=== PATIENT | female | born 1940 | race African-American/Black ===

== ENCOUNTER 2018-12-13 07:24 | Day surgery (SDC) | payer MEDICARE ==
--- NOTE | 2018-12-13 10:28 | RAD ---
XR Chest 1 View HISTORY: Post thoracenteses COMPARISON: None FINDINGS: A small right pleural effusion is present. There is a small right apical pneumothorax. There are changes of median sternotomy and previous valvular surgery. A left-sided pacemaker device i s present. The heart is enlarged. The left lung is clear. IMPRESSION: Small right pneumothorax and small residual right pleural effusion
[2018-12-13 11:16] LABS: Fluid, pH - Pleural Fld Greater than 7.50 (7.60 - 7.66)
[2018-12-13 11:28] LABS: Pleural Fluid, Protein 2.8 g/dL
[2018-12-13 11:39] LABS: BF Color Yellow; Body Fluid Source Pleural Fluid; Clarity Hazy (Clear)
[2018-12-13 11:40] LABS: BF RBC Count - Manual 48 /cumm; BF WBC/Nonhematics Ct. - Manua 76 /cumm; Tube # 3
[2018-12-13 12:03] LABS: BF Segmented Neutrophils 4 %; Cell Count Non Hematic 33 %; Lymphocytes 63 %
--- NOTE | 2018-12-13 15:59 | OP ---
DATE OF PROCEDURE: 12/13/2018 SERVICE: Pulmonary Medicine. PROCEDURE PERFORMED: Right-sided pleural drainage with catheter insertion under ultrasound guidance. CONSENT: Risks and benefits of the procedure were discussed with the patient and her at bedside. All questions were answered and alternative options explained. STAFF PHYSICIAN: Tahir Borjas MD MEDICATIONS USED: Lidocaine 1% without epinephrine, 10 mL. PREOPERATIVE DIAGNOSIS: Pleural effusion, not otherwise specified. POSTPROCEDURE DIAGNOSIS: Pleural effusion, not otherwise specified. DESCRIPTION OF PROCEDURE: Time-out was performed by the procedure team and patient. The patient was positively identified using name and date of . The procedure site was marked. Vital sign monitoring was accomplished by noninvasive hemodynamic monitoring, pulse oximetry, and telemetry. In the seated position, the right posterior hemothorax was examined using an ultrasound probe. The pleural fluid, diaphragm, and atelectatic lung were easily identified. The patient was prepped and draped in sterile fashion and anesthetized with 1% lidocaine without epinephrine. A finder needle was inserted in the pleural space with return of crystal clear, yellow pleural fluid. A drainage catheter was inserted in the same location and a total quantity of 1.1 L of the same crystal clear yellow fluid were withdrawn by syringe pump technique. A sample was collected for analysis. Evacuation of the fluid was terminated because we arrived at -20 cm of water pressure. Afterwards, I suspect there was as much 500 mL of fluid left in the pleural space based on bedside ultrasound. A sterile dressing was applied and the procedure was subsequently terminated. ESTIMATED BLOOD LOSS: Negligible. COMPLICATIONS: None. Job ID: [id number] MTDD
[2018-12-17 09:11] LABS: Fungus Stain Final report (.)
== END 2018-12-13 11:00 | disposition home or self-care (01) ==
LOC: SDC 07:24
PROVIDERS: ATTEND Internal Medicine
PROC: 0B9N30Z Drainage of Right Pleura with Drainage Device, Percutaneous Approach (ICD-10-PCS; principal; 2018-12-13)
DX: J90 Pleural effusion, not elsewhere classified (principal)
CPT/HCPCS: 32555; 71045; 82150; 82945; 83615; 84157; 85060; 87070; 87102; 87116; 87205; 87206; 88112; 88305; 89051

== ENCOUNTER 2019-01-02 11:45 | Outpatient (CLI) | payer MEDICARE ==
--- NOTE | 2019-01-02 13:19 | RAD ---
RADIOGRAPH CHEST 2 VIEWS: Date: 01-02-19 Time: 11:59 a.m. HISTORY: 78-year-old female with dyspnea. COMPARISON: 12-13-18 FINDINGS: The right pleural effusion has now become large, opacifying the lower half of the right hemithoracic cavity. The previously demonstrated small right apical pneumothorax is no longer visualized. Again no jovany are the sternotomy wires, TAVR stent, and left subclavian AICD. No pleural effusion on the left s soraya. Right upper lobe and the entire left lung are clear. No pulmonary edema. IMPRESSION: 1. Reaccumulation of now large right pleural effusion. 2. Status post transcatheter aortic valve replacement. 3. Status post open heart surgery. 4. Automatic implantable cardioverter/defibrillator. JN POS: CET
== END 2019-01-02 11:46 | disposition home or self-care (01) ==
LOC: RAD 11:45
PROVIDERS: ATTEND Internal Medicine
DX: R06.00 Dyspnea, unspecified (principal); Z95.2 Presence of prosthetic heart valve; Z95.818 Presence of other cardiac implants and grafts
CPT/HCPCS: 71046

== ENCOUNTER 2019-04-04 08:57 | Outpatient (CLI) | payer MEDICARE ==
--- NOTE | 2019-04-04 11:03 | RAD ---
TWO VIEWS CHEST: DATE: 04/04/2019. PROVIDED CLINICAL HISTORY: Dyspnea. FINDINGS: Comparison 01/02/2019. Visualized cardiac and mediastinal silhouette is unchanged in appearance. Medi an sternotomy changes, left subclavian cardiac pacing device, and prosthetic aortic valve are redemon strated. Interval increase in right pleural effusion with adjacent atelectasis. Left lung appears f ree of significant opacity. No evidence for pneumothorax. IMPRESSION: Large right pleural effusion, increased with respect to prior. POS: TPC
== END 2019-04-04 08:58 | disposition home or self-care (01) ==
LOC: RAD 08:57
PROVIDERS: ATTEND Internal Medicine
DX: R06.00 Dyspnea, unspecified (principal); J90 Pleural effusion, not elsewhere classified
CPT/HCPCS: 71046

== ENCOUNTER 2019-08-08 09:21 | Outpatient (CLI) | payer MEDICARE ==
--- NOTE | 2019-08-08 09:50 | RAD ---
PA AND LATERAL VIEWS CHEST: Date: 08/08/2019 HISTORY: Dyspnea. COMPARISON: 04/04/2019. FINDINGS: Large right pleural effusion is unchanged. Changes of median sternotomy are again seen. Left-sided pa cemaker device and prosthetic aortic valve are redemonstrated. Left side is stable. Left lung is well aerated with mild atelectatic change in the left lung base. No pneumothoraces are seen. IMPRESSION: Stable large right pleural effusion. POS: BIRD
== END 2019-08-08 09:22 | disposition home or self-care (01) ==
LOC: RAD 09:21
PROVIDERS: ATTEND Internal Medicine
DX: R06.00 Dyspnea, unspecified (principal); J90 Pleural effusion, not elsewhere classified
CPT/HCPCS: 71046

== ENCOUNTER 2019-08-08 10:26 | Inpatient (IN) | payer MEDICARE ==
[2019-08-08] MEDS ORDERED: Furosemide 40 MG/4 ML VIAL ONE (11:09)
[2019-08-08 11:19] LABS: Hemoglobin 9.6 g/dL (12.0-16.0); Red Blood Cell (RBC) Count 2.94 mill/uL (4.20-5.40); White Blood Cell (WBC) Count 4.4 thou/uL (4.8-10.8)
[2019-08-08 11:37] LABS: #Lymphocytes 0.7 thou/uL (1.20-3.40); #Monocytes 0.5 thou/uL (0.11-0.59); #Neutrophils 3.1 thou/uL (1.40-6.50); %Basophils 0.1 % (0.0-1.0); %Eosinophils 0.4 % (0.0-10.0); %Lymphocytes 16.8 % (21.0-51.0); %Monocytes 11.4 % (0.0-10.0); %Neutrophils 71.3 % (42.0-75.0); Anisocytosis SLIGHT = 6-15 cells (100X) (0-5/hpf); MDiff Complete? YES; Macrocytosis SLIGHT = 6-15 cells (100X) (0-5/hpf); Mean Corpuscular HGB CONC 30.5 g/dL (32.0-36.0); Mean Corpuscular Hemoglobin 32.6 pg (27.0-31.0); Mean Platelet Volume 9.2 fL (7.4-10.4); Platelet Count 96 thou/uL (130-400); Platelet Morphology Comment Appears Adequate; RBC Distribution Width 15.3 % (11.5-14.5)
[2019-08-08] MEDS ORDERED: Aspirin Chewable 81 MG TAB ONE (11:58)
[2019-08-08 12:02] LABS: CKMB 8.3 ng/mL (0-6.6)
[2019-08-08 12:10] LABS: ALT (SGPT) 10 U/L (8-55); AST (SGOT) 22 U/L (5-34); Alkaline Phosphatase 115 U/L (40-110); Anion Gap 11 mmol/L (10-20); BUN (Urea Nitrogen) 38 mg/dL (9.8-20.1); Bilirubin, Total 0.6 mg/dL (0.2-1.2); CK (CPK) 121 U/L (29-168); Calc. Creatinine Clearance 0 mL/min (70-130); Calcium 8.4 mg/dL (7.8-10.44); Carbon Dioxide 31 mmol/L (23-31); Chloride 105 mmol/L (98-107); Estimated GFR-MDRD 32; Globulin 3.5 g/dL (2.4-3.5); Glucose 107 mg/dL (83-110); Potassium 4.5 mmol/L (3.5-5.1); Protein, Total 6.5 g/dL (6.0-8.3); Sodium 142 mmol/L (136-145)
[2019-08-08] MEDS ORDERED: Sodium Chloride 0.9% 0 ML ONE (13:21)
[2019-08-08] MEDS ORDERED: Cefepime 2 GM VIAL ONE (13:21)
[2019-08-08] MEDS ORDERED: DOBUTamine 500 mg/250 ml 250 ML ONE (15:14)
[2019-08-08 15:16] LABS: Bacteria/HPF None Seen HPF (None Seen); Bilirubin Negative (Negative); Blood, Urine Negative (Negative); Clarity Turbid (Clear); Glucose, Urine (Dipstick) Normal (Negative); Leukocyte Negative Leu/uL (Negative); Nitrite Negative (Negative); Protein, Urine (Dipstick) 30 mg/dL (Neg-Trace); RBC/HPF None Seen HPF (0-3); Squamous Epithelial 0-3 HPF (0-3); WBC/HPF 0-3 HPF (0-3)
[2019-08-08] MEDS ORDERED: Bisacodyl 10 MG SUPP PR PRN (15:19)
[2019-08-08] MEDS ORDERED: DOBUTamine 500 mg/250 ml 250 ML IVPB SCH (15:19)
[2019-08-08] MEDS ORDERED: Ondansetron PF 4 MG/2 ML Vial IVP PRN (15:19)
[2019-08-08] MEDS ORDERED: Guaifenesin DM 100-10/5 ML UDCUP PO PRN (15:19)
[2019-08-08 15:22] LABS: INR-International Normal Ratio 2.3; Prothrombin Time 25.5 SEC (12.0-14.7)
--- NOTE | 2019-08-08 16:20 | HP ---
REASON FOR ADMISSION: CHF exacerbation with cardiogenic shock, acute kidney injury, acute respiratory failure with hypoxia, massive right pleural effusion. HISTORY OF PRESENTING ILLNESS: The patient gives history of having progressive swelling in both lower extremities and worsening shortness of breath. She normally ambulates with a cane inside the house. The patient is hard of hearing and not fully oriented at present. Her is at bedside and is filling in for her. They apparently called Dr. Carver, internet sales associate on Sunday as she was having trouble with the above. He asked them to call Dr. Borjas's office and the patient had come to see Dr. Borjas this morning. Her systolic blood pressures were in the 70s with elevated JVD and the patient was asked to go to the ER. On arrival here, the patient had a MAP of 50 and had a femoral line placed. She is currently not complaining of any chest pain or palpitation. No complaints of cough or expectoration or hemoptysis. No fever. The patient has had left lower extremity edema more than right because of vein harvesting in the past for CABG, but currently has severe edema. PAST MEDICAL AND SURGICAL HISTORY: History of CABG in 2001, prior history of stent, CHF with ejection fraction of around 30%, prior thoracentesis done in December 2018 on the right side by Dr. Borjas, hypertension, history of TAVR, moderate mitral regurgitation, dyslipidemia, biventricular pacemaker placed in 2016, hysterectomy, AV node ablation done in 2015, last stent was placed in 2000. CURRENT MEDICATIONS: The patient is on: 1. Eliquis 5 mg twice daily. 2. Lisinopril 10 mg daily. 3. Plavix 75 mg daily. 4. Lasix 20 mg daily. 5. Atorvastatin 20 mg daily. 6. Aspirin 81 mg daily. 7. Coreg 3.125 mg twice daily. 8. Potassium chloride 10 mEq p.o. daily. 9. Vitamin D one tablet daily. 10. Fish oil 1000 mg twice daily. 11. Lantus subcu daily. ALLERGIES: PRADAXA, SIMVASTATIN, AND DIAZEPAM. PERSONAL HISTORY: Does not abuse alcohol or drugs. No history of smoking. FAMILY HISTORY: Mother at the age of 65 from massive OR. Father in his 80s from natural causes. The patient is to her from last 57 years or so now. REVIEW OF SYSTEMS: CONSTITUTIONAL: Negative for weight loss or gain, ability to conduct usual activities. SKIN: Negative for rash, itching. EYES: Negative for double vision, pain. ENT/MOUTH: Negative for nose bleeding, neck stiffness, pain, tenderness. CARDIOVASCULAR: Negative for palpitations, dyspnea on exertion, orthopnea. RESPIRATORY: Negative for shortness of breath, wheezing, cough, hemoptysis, fever or night sweats. GASTROINTESTINAL: Negative for poor appetite, abdominal pain, heartburn, nausea, vomiting, constipation, or diarrhea. GENITOURINARY: Negative for urgency, frequency, dysuria, nocturia. MUSCULOSKELETAL: Negative for pain, swelling. NEUROLOGIC/PSYCHIATRIC: Negative for anxiety, depression. ALLERGY/IMMUNOLOGIC: Negative for skin rash, bleeding tendency. CODE STATUS: Full. Power of attorney law clerk is her . PHYSICAL EXAMINATION: GENERAL: The patient is a 79-year-old female, who is currently not in any acute distress. VITAL SIGNS: Blood pressure currently is 90/40, pulse 80 per minute, respiratory rate 20 per minute, saturating 97% on 2 L nasal cannula, and temperature 98.3 degrees Fahrenheit. NECK: Supple. There is elevated JVD. HEENT: Eyes; extraocular muscles intact. Pupils reacting to light. Oral cavity, mucous membranes are dry. No exudates or congestion. CARDIOVASCULAR SYSTEM: S1 and S2 heard. Regular rhythm. RESPIRATORY SYSTEM: Air entry is decreased on the right side and left infrascapular area as well. There are rales plus bilateral. ABDOMEN: Soft. Bowel sounds heard. No tenderness, rigidity, or guarding. EXTREMITIES: There is massive edema in both lower extremities, left more than right. No calf tenderness. VASCULAR SYSTEM: Peripheral pulses 1+ bilateral. No ischemic ulcerations or gangrene. CENTRAL NERVOUS SYSTEM: No gross focal deficits noted. The patient is alert, awake, and responds well to verbal questions. PSYCHIATRIC SYSTEM: No obvious hallucinations or delusions. LABORATORY DATA: Chest x-ray done shows massive right-sided pleural effusion. There is left pleural effusion as well. White count of 4.4, hemoglobin and hematocrit of 9 and 31, platelet count is 96, MCV is 107 with 71% neutrophils. PT/INR 25 and 2.3, PTT 41. Serum bicarb is 31, BUN 38, creatinine 1.8. Liver enzymes within normal limits. CK-MB 8.3, troponin I 0.16. BNP is 1471. Albumin is 3.0. EKG done shows paced rhythm at 70 beats per minute. CLINICAL IMPRESSION AND PLAN: The patient will be admitted to ICU for congestive heart failure exacerbation with systolic dysfunction and cardiogenic shock with acute respiratory failure with hypoxia. The patient also has acute kidney injury on top of likely chronic kidney disease. She normally follows up with Dr. Carver. She has had prior thoracentesis done last year and her cytology was negative for malignancy. She has known history of CHF with ejection fraction of around 30% and has had prior TAVR done in summer of 2018 in [place]. She will be on dobutamine 2.5 mcg/kg per minute, if needed we will increase it to 5. Small dose of aspirin and if her blood pressure permits, the patient will be on Lasix 40 mg at 6 a.m. and 2 p.m. I have consulted Dr. Villarreal for Pulmonology and likely the patient will need thoracentesis done to help with cardiac output. The patient also has massive edema in both lower extremities and will try to wear the JANET hose. I have requested Cardiology consultation with Dr. Leger. We will obtain a current ejection fraction with echo with 2D Doppler. The patient will be on clear liquid diet. I have spoken Dr. Mcneill for possible worsening of acute kidney injury with diuresis and current cardiogenic shock. Her overall prognosis is guarded. I have discussed her findings with the patient and her at bedside. They want to be full code for now. Job ID: [id number]
--- NOTE | 2019-08-08 16:53 | CON ---
DATE OF CONSULTATION: HISTORY OF PRESENT ILLNESS: Elizabeth Del Castillo is a 79-year-old female, who was sent to the ER by Dr. Borjas with symptoms of shortness of breath and pleural effusion. She has been getting more short of breath now for a period of time. No chest pain. No chills or sweats. PAST MEDICAL HISTORY: Pertinent for large pleural effusion, cardiomyopathy, and renal failure. PAST SURGICAL HISTORY: Otherwise included AICD. Hysterectomy, ablation, and angioplasty. HOME MEDICATIONS: Unknown at this time. to bring medication. PHYSICAL EXAMINATION: GENERAL: The patient is deaf, refuses to answer any questions. VITAL SIGNS: Blood pressure is 80/60, pulse 80, respirations 20, and saturations 98%. CHEST: Decreased breath sounds in entire right lung. Left lung unremarkable. CARDIAC: Normal S1 and S2. No gallops. ABDOMEN: No masses. LABORATORY DATA: INR is 2.3. White count 4000, hemoglobin and hematocrit of 9 and 31, platelet count 96 low. Lytes are normal. Creatinine 1.8. BNP is 1471. CK is 18.3. UA is negative. X-ray shows a large right pleural effusion. 1. Congestive heart failure. 2. Aortic stenosis. 3. Cardiomyopathy. 4. AICD. 5. disease. 6. Renal failure. 7. Anemia. 8. Large hemorrhoids. PLAN: Therapeutic thoracentesis will be performed further direction thereafter. Continue cardiac care as per Cardiology. Supportive care. Prognosis remains guarded. Consult Palliative Care for ongoing issues. This is a consultation note, 70 minutes, 50% direct patient care. Job ID: [id number]
--- NOTE | 2019-08-08 17:25 | RAD ---
EXAM: CHEST ONE VIEW: 08/08/19 HISTORY: Follow-up thoracentesis. FINDINGS: There is evidence for a small to moderate right sided pneumothorax, largest in the lateral aspect of the right lower chest with a small amount of air extending up into the apex. No evidence for tension. Cardiomegaly. Postop midline sternotomy and left ICD and TAVR changes. Small amount of subcutaneous emphysema. IMPRESSION: Small to moderate right sided pneumothorax following thoracentesis. Findings were discussed with Dr. Villarreal by phone at 4:20 p.m. Jeanna REYNAGA
--- NOTE | 2019-08-08 17:30 | RAD ---
EXAM: CHEST ONE VIEW: 08/08/19 HISTORY: Follow-up pneumothorax. COMPARISON: 3:46 p.m., 08/08/19. FINDINGS: A small caliber Heimlich valve catheter has been placed. Persistent small to moderate right sided pne umothorax with some subcutaneous emphysema which appears slightly more prominent. Stable cardiomegaly in left chest. IMPRESSION: Little change in the right sided pneumothorax following placement of a small caliber chest tube. POS: [facility]
[2019-08-08 17:33] LABS: Fluid, pH - Pleural Fld 7.44 (7.60 - 7.66)
[2019-08-08 17:45] LABS: Fluid, Triglycerides Less than 11 mg/dL (Not Available); Pleural Fluid, Amylase 42 U/L (Not Available); Pleural Fluid, Glucose 131 mg/dL; Pleural Fluid, LDH 80 U/L (Not Available); Pleural Fluid, Protein 2.2 g/dL
[2019-08-08 18:07] LABS: RBC Count-Automated (BF) 733 /cumm; WBC/Nucleated-Auto (BF) 584 uL
[2019-08-08 18:10] LABS: BF Color Yellow; Body Fluid Source Pleural Fluid; Clarity Hazy (Clear); Tube # EDTA
[2019-08-08 18:12] LABS: BF Segmented Neutrophils 5 %; Cell Count Non Hematic 74 %; Lymphocytes 21 %
--- NOTE | 2019-08-08 19:24 | CON ---
DATE OF CONSULTATION: 08/08/2019 REASON FOR CONSULTATION: Heart failure. PRIMARY NURSES EDUCATOR: Randall Carver MD HISTORY OF PRESENT ILLNESS: Ms. Daniels is a very pleasant 79-year-old -Spanish female, who comes to the hospital for worsening shortness of breath. She has noticed progressive worsening of lower extremity edema and shortness of breath. She was seen in the ER. She was borderline hypotensive, started on dobutamine drip. Chest x-ray showed a massive right-sided pleural effusion. Cardiac is being consulted for further evaluation of her heart failure. She has known cardiomyopathy with an EF around 30%. PAST MEDICAL HISTORY: 1. History of coronary artery disease, status post CABG in 2001. 2. History of stenting in the more recent past. 3. Ischemic cardiomyopathy with EF around 30%. 4. History of massive right-sided pleural effusion, status post thoracentesis in December of [address] Borjas. 5. History of aortic stenosis, status post TAVR. 6. Hypertension. 7. Hyperlipidemia. 8. Biventricular pacemaker insertion in 2016. 9. Hysterectomy. 10. AVJ node ablation in 2015. OUTPATIENT MEDICATIONS: 1. Eliquis 5 mg b.i.d. 2. Lisinopril 10 mg a day. 3. Plavix 75 mg a day. 4. Lasix 10 mg a day. 5. Atorvastatin 10 mg a day. 6. Aspirin 81 a day. 7. Coreg 3.125 b.i.d. 8. Potassium chloride 10 mEq a day. 9. Vitamin D. 10. Fish oil. 11. Lantus. ALLERGIES: PRADAXA, SIMVASTATIN, AND DIAZEPAM. SOCIAL HISTORY: No alcohol, tobacco, or drugs. FAMILY HISTORY: Mother of [place] at 65. Father at 80s of natural causes. REVIEW OF SYSTEMS: A 12-point review of systems was done and was all negative unless stated in the history of present illness. PHYSICAL EXAMINATION: VITAL SIGNS: Temperature 97.7, heart rate 70, respiratory rate 21, sat 99% on 2 L nasal cannula, and blood pressure 103/57. GENERAL: Awake, alert, and oriented x3, in no acute distress. HEENT: Normocephalic and atraumatic. Extreme hypoacusia, she really cannot hear much. NECK: Supple with JVD up to about 14 cm of water. LUNGS: No breath sounds to the right lung. Mild crackles in the left base. CARDIOVASCULAR: Grade 3/6 systolic murmur at the right upper sternal border. S1 and S2. ABDOMEN: Soft. Positive bowel sounds. EXTREMITIES: 2+ edema. SKIN: Warm and dry. LABORATORY DATA: Laboratory work was reviewed. White count of 4, hemoglobin 9.6, hematocrit of 31, and platelet count of 96. Coags, INR was 2.3. Chemistry with troponin in the indeterminate range. CK-MB of 8.3. BNP is 1471. BUN 38, creatinine 1.84, albumin of 3.0. UA was turbid with 30 protein, 2.0 urobilinogen, 1+ crystals and hyaline casts. Chest x-ray initially showed a large massive right-sided pleural effusion after 2 L were taken out. Repeat x-ray showed a large pneumothorax, basically the lung not expanding. ASSESSMENT AND PLAN: 1. Acute on chronic systolic heart failure. 2. Massive right-sided pleural effusion. 3. Status post thoracentesis and a large pneumothorax secondary to the lung reexpanding. 4. Acute hypoxic respiratory insufficiency. 5. Cardiogenic shock, blood pressure improved on low-dose dobutamine. PLAN: 1. Continue supportive care with low-dose dobutamine. 2. Blood pressure is a lot better. 3. Already has a chest tube in place, but she will probably need a bigger chest tube. Management of this pneumothorax per Pulmonary Critical Care. 4. Difficult to do any Lasix at this time with borderline low blood pressure. She already had 2 L out just from this pleural effusion, so this hopefully is going to make her feel a lot better. Her blood pressure is already a lot better as well. Thank you for letting us to participate in the care of your patient. We will follow. Job ID: [id number]
[2019-08-08] MEDS ORDERED: Heparin 5,000 UNITS/ML VIAL SC SCH (21:00)
[2019-08-08] MEDS: Preparation H Ointment 57 gram tube TOP PRN (21:56)
[2019-08-08] MEDS: Acetaminophen 325 MG TAB PO PRN (23:40)
--- NOTE | 2019-08-09 01:31 | CON ---
DATE OF CONSULTATION: 08/08/2019 CONSULTING PHYSICIAN: Dr. Hollingsworth. REASON FOR CONSULTATION: Acute kidney injury. REASON FOR ADMISSION: Shortness of breath. HISTORY OF PRESENT ILLNESS: This 79-year-old female with history of CHF, CAD, hyperlipidemia, mitral regurgitation, came to the hospital with shortness of breath. She has been evaluated. She was hypotensive and fluid overloaded and she is currently on dobutamine. Nephrology consult for acute kidney injury. Her creatinine was found to be 1.8. The patient is feeling slightly better. She was seen in ICU. Her is at the bedside. No fever or chills. No nausea or vomiting. PAST MEDICAL HISTORY: Positive for coronary artery disease, CHF, hypertension, mitral regurgitation, and dyslipidemia. PAST SURGICAL HISTORY: CABG, cardiac stents, thoracentesis, TAVR, biventricular pacemaker, hysterectomy, and AV tomer ablation. HOME MEDICATIONS: 1. Eliquis. 2. Lisinopril. 3. Plavix. 4. Lasix. 5. Atorvastatin. 6. Aspirin. 7. Coreg. 8. Potassium. 9. Vitamin D. 10. Fish oil. 11. Lantus. ALLERGIES: PRADAXA, SIMVASTATIN, AND DIAZEPAM. SOCIAL HISTORY: No smoking, alcohol or drugs. FAMILY HISTORY: Positive for coronary artery disease. REVIEW OF SYSTEMS: CONSTITUTIONAL: Negative for weight loss or gain, ability to conduct usual activities. SKIN: Negative for rash, itching. EYES: Negative for double vision, pain. ENT/MOUTH: Negative for nose bleeding, neck stiffness, pain, tenderness. CARDIOVASCULAR: Negative for palpitations, dyspnea on exertion, orthopnea. RESPIRATORY: Negative for shortness of breath, wheezing, cough, hemoptysis, fever or night sweats. GASTROINTESTINAL: Negative for poor appetite, abdominal pain, heartburn, nausea , vomiting, constipation, or diarrhea. GENITOURINARY: Negative for urgency, frequency, dysuria, nocturia. MUSCULOSKELETAL: Negative for pain, swelling. NEUROLOGIC/PSYCHIATRIC: Negative for anxiety, depression. ALLERGY/IMMUNOLOGIC: Negative for skin rash, bleeding tendency. PHYSICAL EXAMINATION: GENERAL: This is a well-built female, in no apparent distress. VITAL SIGNS: Temperature 97.7, pulse 70, respiratory rate 18 blood pressure 108/50. HEENT: Atraumatic, normocephalic. Oral mucosa is moist. NECK: Supple. CV: S1 and S2 heard. Regular rate and rhythm. RESPIRATORY: Clear. GASTROINTESTINAL: Abdomen is soft. MUSCULOSKELETAL: 1+ edema. DERMATOLOGIC: No skin rash. NEUROLOGIC: Alert and awake. PSYCHIATRIC: Mood and affect normal. LABORATORY DATA: Potassium 4.5, BUN is 38, and creatinine is 1.8, and hemoglobin is 9.0. ASSESSMENT AND PLAN: 1. Acute kidney injury on chronic kidney stage 3, most likely cardiorenal syndrome. Agree with current management including inotropes and we will monitor renal function. Continue on diuretics. 2. Hypotension. 3. Cardiorenal syndrome, cardiogenic shock. 4. Anemia. 5. Edema with fluid overload. 6. We will have close monitor renal function and electrolytes monitor closely. Avoid nephrotoxins. Avoid ALFREDO inhibitors or contrast at this point if able to. We will follow. Job ID: [id number] MTDD
[2019-08-09] MEDS ORDERED: Norepinephrine 8 MG/0.9% NS 250 ML ONE (04:11)
[2019-08-09] MEDS: Norepinephrine 8 MG/0.9% NS 250 ML IVPB PRN ×2 (04:15→19:08)
[2019-08-09 04:19] LABS: #Lymphocytes 0.7 thou/uL (1.20-3.40); #Monocytes 0.5 thou/uL (0.11-0.59); %Eosinophils 0.3 % (0.0-10.0); %Lymphocytes 13.2 % (21.0-51.0); %Monocytes 9.7 % (0.0-10.0); %Neutrophils 76.8 % (42.0-75.0); Hemoglobin 8.2 g/dL (12.0-16.0); Mean Corpuscular HGB CONC 31.2 g/dL (32.0-36.0); Mean Corpuscular Hemoglobin 32.9 pg (27.0-31.0); Mean Platelet Volume 9.9 fL (7.4-10.4); Platelet Count 72 thou/uL (130-400); Red Blood Cell (RBC) Count 2.49 mill/uL (4.20-5.40); White Blood Cell (WBC) Count 5.2 thou/uL (4.8-10.8)
[2019-08-09 05:02] LABS: ALT (SGPT) Less than 7 U/L (8-55); AST (SGOT) 16 U/L (5-34); Albumin 2.3 g/dL (3.4-4.8); Alkaline Phosphatase 76 U/L (40-110); Anion Gap 8 mmol/L (10-20); BUN (Urea Nitrogen) 38 mg/dL (9.8-20.1); Bilirubin, Total 0.7 mg/dL (0.2-1.2); Calc. Creatinine Clearance 26 mL/min (70-130); Calcium 7.7 mg/dL (7.8-10.44); Carbon Dioxide 31 mmol/L (23-31); Chloride 107 mmol/L (98-107); Estimated GFR-MDRD 36; Globulin 2.9 g/dL (2.4-3.5); Glucose 128 mg/dL (83-110); Potassium 4.4 mmol/L (3.5-5.1); Protein, Total 5.2 g/dL (6.0-8.3); Sodium 142 mmol/L (136-145)
[2019-08-09] MEDS: Furosemide 40 MG/4 ML VIAL SLOW IVP SCH ×2 (06:17→14:01)
[2019-08-09] MEDS: DOBUTamine 500 mg/250 ml 250 ML IVPB SCH ×2 (06:17→15:08)
--- NOTE | 2019-08-09 07:49 | RAD ---
EXAM: XR Chest 1 View Portable PROVIDED CLINICAL HISTORY: Pneumothorax COMPARISON: 08/08/2019 FINDINGS: Interval decrease but persistently at least moderate right pneumothorax. Development of right pleural fluid. Cardiac silhouette remains enlarged. Median sternotomy changes, left subclavian cardiac pacing device and prosthetic cardiac valve are redemonstrated. Small caliber right-sided chest tube i s again seen in similar position. IMPRESSION: Right hydropneumothorax with probably diminished but persistently at least moderate pleural gas.
[2019-08-09] MEDS: Aspirin Chewable 81 MG TAB PO SCH (09:08)
--- NOTE | 2019-08-09 09:21 | PRG ---
DATE OF SERVICE: 08/09/2019 SUBJECTIVE: This morning, the patient is on Dobutrex and Levophed. OBJECTIVE: VITAL SIGNS: Blood pressure systolic 100/70, pulse rate is 18, saturations 100% on 2 L. GENERAL: Awake, alert, and responsive. Denies any difficulty breathing. CHEST: Decreased breath sounds. No wheezing. CARDIAC: Normal S1 and S2. No gallops. ABDOMEN: No masses. LABORATORY DATA: INR is 2.3. White count 5000, hemoglobin and hematocrit of 8 and 26, platelet count is 72,000. Creatinine is 1.65. Pleural effusion was transudate. IMPRESSION: Cardiomyopathy, chronic right pleural effusion, renal failure. PLAN: Continue supportive care, empiric antibiotics, neb treatment. We will follow. We will consider putting a large chest tube on the right side to inflate the lung. Job ID: [id number]
[2019-08-09] MEDS: Hydrocortisone Sod Succ/PF 100 mg/2 ml Vial IVP SCH ×3 (12:02→23:56)
[2019-08-09] MEDS: cefTRIAXone\\ROCEPHIN 1 GM in Sodium Chloride 0.9% 100 ML IVPB SCH (12:02)
--- NOTE | 2019-08-09 12:02 | PRG ---
DATE OF SERVICE: 08/09/2019 Area of the small-bore chest tube, Joshua trial was reviewed. Unfortunately, there was seen multiple kinks in the small-bore chest tube and the entire small-bore chest tube was clotted with blood. Attempt to flush with normal saline was unsuccessful. It was felt at that time it is best to remove the tube. It is not serving any purpose. The suture was removed. The chest tube was removed. Bandage was placed. She remains having 100% saturation. It is my plan that in the morning depending upon the x-ray, we may consider inserting a large or small bore chest tube with the help of CV Surgery. Overall prognosis remains guarded. She got severe cardiomyopathy. I am going to start empiric steroids and antibiotics. Job ID: [id number]
--- NOTE | 2019-08-09 12:23 | PRG ---
DATE OF SERVICE: 08/09/2019 SUBJECTIVE: Patient was seen and examined at bedside and overnight events noted. Patient denies any shortness of breath or chest pain or palpitation. No history of nausea or vomiting or diarrhea or fever or chills or cramps. OBJECTIVE: GENERAL: This is a well-built female, in no apparent distress. VITAL SIGNS: Temperature 97.8. Heart rate 70. Respiratory rate 16. Blood pressure 93/43. HEENT: Atraumatic, normocephalic. Oral mucosa is moist NECK: Supple. CARDIOVASCULAR: S1, S2 heard. Rate and rhythm regular. RESPIRATORY: Clear to auscultation. GASTROINTESTINAL: Abdomen is soft. MUSCULOSKELETAL: No tenderness. No edema. DERMATOLOGIC: No skin rash. NEUROLOGIC: Alert and awake and oriented X3. No focal neurologic deficits. Moving all the extremities. PSYCHIATRIC: Mood and affect normal. LABORATORY DATA: Potassium 4.4, BUN is 38, creatinine is 1.65. Platelet is 72. ASSESSMENT AND PLAN: 1. Acute kidney injury on chronic kidney disease stage 3, getting better. 2. Hypertension. 3. Cardiorenal syndrome. 4. Anemia. 5. Edema with fluid overload. 6. Altered mentation, better. Renal function continues to get better. Continue current management. We will follow. Job ID: [id number]
--- NOTE | 2019-08-09 13:56 | PDOC.HOSPP ---
- Subjective Encounter Date: 08/09/19 Encounter Time: 12:00 Subjective: is on both dobutamine and levophed with sbp around 80-90's awakens to touch, not in distress very hard of hearing, she had hearing aid yesterday in ER but she is not wearing one now. - Objective Vital Signs & Weight: Vital Signs (12 hours) Temp Pulse Ox 08/09/19 13:00 98.2 F 08/09/19 12:00 100 08/09/19 08:00 97.8 F 08/09/19 07:31 100 08/09/19 04:00 98.0 F Weight Admit Weight 133 lb 2.56 oz Weight 140 lb 14 oz Most Recent Monitor Data Heart Rate from ECG 70 NIBP 85/40 NIBP BP-Mean 55 Respiration from ECG 22 SpO2 95 I&O: 08/08/19 08/09/19 08/10/19 06:59 06:59 07:59 Intake Total 991.1 1740 Output Total 3350 Balance -2358.9 1740 Result Diagrams: 08/09/19 03:27 08/09/19 03:30 Hospitalist ROS - Medication Medications: Active Medications Generic Name Dose Route Start Last Admin Trade Name Freq PRN Reason Stop Dose Admin Acetaminophen 650 mg 08/08/19 15:19 08/08/19 23:40 Tylenol PO 650 mg Q4H PRN Administration Headache/Fever/Mild Pain (1-3) Aspirin 81 mg 08/09/19 09:00 08/09/19 09:08 Aspirin Chewable PO 81 mg DAILY ZACHARY Administration Furosemide 40 mg 08/09/19 06:00 08/09/19 06:17 Lasix SLOW IVP Not Given 0600,1400 ZACHARY Hydrocortisone Sodium Succinate 50 mg 08/09/19 12:00 08/09/19 12:02 Solu-Cortef IVP 50 mg Q6HR ZACHARY Administration Dobutamine HCl/Dextrose 250 mls @ 4.725 mls/hr 08/08/19 17:45 08/09/19 06:17 Dobutamine 500 Mg/250 Ml IVPB 250 mls INF ZACHARY Administration Protocol 2.5 MCG/KG/MIN Norepinephrine Bitartrate 250 mls @ 0 mls/hr 08/09/19 04:14 08/09/19 04:15 Levophed IVPB 250 mls INF PRN Administration TO KEEP MAP > 65 Protocol Titrate Ceftriaxone Sodium 1 gm/ 100 mls @ 200 mls/hr 08/09/19 11:30 08/09/19 12:02 Sodium Chloride IVPB 100 mls Q24HR ZACHARY Administration Miscellaneous Medication 0 gm 08/08/19 21:07 08/08/19 21:56 Preparation H Ointment TOP 1 applic ASDIR PRN Administration Hemorrhoids Pantoprazole Sodium 40 mg 08/09/19 09:00 08/09/19 09:08 Protonix PO 40 mg DAILY ZACHARY Administration Sodium Chloride 10 ml 08/09/19 09:00 08/09/19 09:09 Flush - Normal Saline IVF 10 ml Q12HR ZACHARY Administration - Exam General Appearance: ill appearing Eye: PERRL, anicteric sclera ENT: no oropharyngeal lesions, moist mucosa Neck: supple, no JVD Heart: RRR, no murmur Respiratory: no wheezes, no rales Gastrointestinal: soft, non-tender, non-distended, normal bowel sounds Extremities: no cyanosis, 2+ LE edema Neurological: cranial nerve grossly intact, no new deficit Hosp A/P (1) Acute exacerbation of CHF (congestive heart failure) Code(s): I50.9 - HEART FAILURE, UNSPECIFIED Status: Acute Qualifiers: Heart failure type: combined systolic and diastolic Qualified Code(s): I50.43 - Acute on chronic 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 transplanted heart: [place] heart Associated angina: without angina Qualified Code(s): I25.810 - Atherosclerosis of coronary artery bypass graft(s) without angina pectoris (6) Dyslipidemia Code(s): E78.5 - HYPERLIPIDEMIA, UNSPECIFIED Status: Chronic - Plan is on dobutamine and levophed, still has low MAP had thoracentesis yesterday on right side continue ceftriaxone, asp, solucortef, nebs prn prognosis guarded prior ef of 30%, await repeat echo results
--- NOTE | 2019-08-09 15:16 | PDOC.CPN ---
- Subjective Date: 08/09/19 Time: 15:13 Interval history: No new issues. Had to add levophed for hypotension. - Review of Systems ROS unobtainable: due to mental status - Objective Allergies/Adverse Reactions: Allergies Allergy/AdvReac Type Severity Reaction Status Date / Time No Known Allergies Allergy Verified 08/08/19 18:09 Visit Medications: Current Medications Acetaminophen (Tylenol) 650 mg PO Q4H PRN PRN Reason: Headache/Fever/Mild Pain (1-3) Last Admin: 08/08/19 23:40 Dose: 650 mg Aspirin (Aspirin Chewable) 81 mg PO DAILY [facility] Last Admin: 08/09/19 09:08 Dose: 81 mg Bisacodyl (Dulcolax) 10 mg [place] DAILYPRN PRN PRN Reason: Constipation Furosemide (Lasix) 40 mg SLOW IVP 0600,1400 [facility] Last Admin: 08/09/19 14:01 Dose: Not Given Guaifenesin/Dextromethorphan (Robitussin Dm) 15 ml PO Q4H PRN PRN Reason: Cough Hydrocortisone Sodium Succinate (Solu-Cortef) 50 mg IVP Q6HR ZACHARY Last Admin: 08/09/19 12:02 Dose: 50 mg Dobutamine HCl/Dextrose (Dobutamine 500 Mg/250 Ml) 250 mls @ 4.725 mls/hr IVPB INF ZACHARY; Protocol Last Admin: 08/09/19 15:08 Dose: 250 mls Norepinephrine Bitartrate (Levophed) 250 mls @ 0 mls/hr IVPB INF PRN; Protocol PRN Reason: TO KEEP MAP > 65 Last Admin: 08/09/19 04:15 Dose: 250 mls Ceftriaxone Sodium 1 gm/ (Sodium Chloride) 100 mls @ 200 mls/hr IVPB Q24HR ZACHARY Last Admin: 08/09/19 12:02 Dose: 100 mls Miscellaneous Medication (Preparation H Ointment) 0 gm TOP ASDIR PRN PRN Reason: Hemorrhoids Last Admin: 08/08/19 21:56 Dose: 1 applic Ondansetron HCl (Zofran) 4 mg IVP Q6H PRN PRN Reason: Nausea/Vomiting Pantoprazole Sodium (Protonix) 40 mg PO DAILY [facility] Last Admin: 08/09/19 09:08 Dose: 40 mg Senna/Docusate Sodium (Senokot S) 2 tab PO BIDPRN PRN PRN Reason: Constipation Sodium Chloride (Flush - Normal Saline) 10 ml IVF Q12HR ZACHARY Last Admin: 08/09/19 09:09 Dose: 10 ml Sodium Chloride (Flush - Normal Saline) 10 ml IVF PRN PRN PRN Reason: Saline Flush Vital Signs & Weight: Vital Signs Temp Pulse Ox 08/09/19 15:00 97.8 F 08/09/19 13:00 98.2 F 08/09/19 12:00 100 08/09/19 08:00 97.8 F 08/09/19 07:31 100 08/09/19 04:00 98.0 F Admit Weight 133 lb 2.56 oz Weight 140 lb 14 oz - Physical Exam General: appears well HEENT: mucus membranes moist Neck: supple neck Cardiac: regular rate and rhythm Lungs: absent breath sounds Neuro: no lateralizing findings Abdomen: active bowel sounds Extremities: no edema Skin: clear Musculoskeletal: no pain - Labs Result Diagrams: 08/09/19 03:27 08/09/19 03:30 Troponin/CKMB CK-MB (CK-2) 8.3 ng/mL (0-6.6) H* 08/08/19 10:48 Troponin I 0.167 ng/mL (< 0.028) H 08/08/19 10:48 - Telemetry Sinus rhythms and dysrhythmias: sinus rhythm - Assessment/Plan Assessment/Plan: 1. Large right sided pleural effusion 2. [place]/pneumothorax right 3. Chronic systolic heart failure., EF on echo today at 60% 4. Hypotension 5. 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 Pulmonary HTN RVSP 68 mmHg. PLAN: - Continue pressor and inotropic support. - Likely increased right sided pressures related to hydro pneumothorax - Will need diuresis once BP allows. - Critical Care Time Critical care time (mins): 30
[2019-08-09] MEDS: Acetaminophen 325 MG TAB PO PRN (16:11)
[2019-08-09] MEDS: Senokot S 8.6-50 MG TAB PO PRN (20:22)
[2019-08-10] MEDS: DOBUTamine 500 mg/250 ml 250 ML IVPB SCH (00:53)
[2019-08-10] MEDS: Preparation H Ointment 57 gram tube TOP PRN (04:50)
[2019-08-10] MEDS: Furosemide 40 MG/4 ML VIAL SLOW IVP SCH ×2 (05:35→13:55)
[2019-08-10] MEDS: Hydrocortisone Sod Succ/PF 100 mg/2 ml Vial IVP SCH (05:35)
--- NOTE | 2019-08-10 08:24 | RAD ---
RADIOGRAPH CHEST 1 VIEW: DATE: 08/10/2019 TIME: 4:06 AM HISTORY: 79-year-old female follow-up pneumothorax COMPARISON: 08/09/2019 4:56 AM FINDINGS: Small caliber right pleural catheter has been removed. No interval change in the size of the right pn eumothorax which is small at the apex and large at the mid and lower lung zones. Interval increase in volume of now large right pleural effusion. No change in small to moderate-sized left pleural effu cande. Left subclavian AICD. Sternotomy wires. IMPRESSION: 1. Large right hydropneumothorax. 2. After removal of right pleural catheter, the large right pneumothorax has not changed, but the rig ht pleural effusion has increased.
[2019-08-10] MEDS: Aspirin Chewable 81 MG TAB PO SCH (08:34)
[2019-08-10] MEDS: Lorazepam 2 MG/ML VIAL SLOW IVP PRN ×2 (10:05→21:18)
--- NOTE | 2019-08-10 10:18 | PRG ---
DATE OF SERVICE: 08/10/2019 SUBJECTIVE: This morning, she was shaky and tremulous. Family thinks it is due to the hydrocortisone she was given yesterday, but she only got one shot. It was given to see whether she was hypotensive for relative adrenal insufficiency. Her cortisol level was 10. So she is clearly in relative adrenal insufficiency secondary to multiorgan failure. She is still on Dobutrex and Levophed. OBJECTIVE: VITAL SIGNS: Pulse 76, blood pressure CHEST: Decreased breath sounds. No wheezing. CARDIAC: Normal S1, S2. No gallops. ABDOMEN: No mass. LABORATORY DATA: No lab was ordered. ASSESSMENT: Multiorgan failure, renal failure, cardiomyopathy, pleural effusion, right hydropneumothorax. PLAN: 1. Sats are okay. She is stabilized and may consider insertion of a small bore chest tube. 2. Consult CV surgery in the morning or a lab in the morning. The hydrocortisone has been discontinued though she is clearly . 3. May give a trial of Ativan. Continue supportive care. Prognosis remains guarded. Job ID: [id number]
[2019-08-10 10:26] LABS: Hemoglobin 8.7 g/dL (12.0-16.0); Mean Corpuscular HGB CONC 31.7 g/dL (32.0-36.0); Mean Corpuscular Hemoglobin 33.2 pg (27.0-31.0); Mean Platelet Volume 9.6 fL (7.4-10.4); Platelet Count 89 thou/uL (130-400); RBC Distribution Width 15.1 % (11.5-14.5); Red Blood Cell (RBC) Count 2.62 mill/uL (4.20-5.40); White Blood Cell (WBC) Count 10.3 thou/uL (4.8-10.8)
[2019-08-10] MEDS: Norepinephrine 8 MG/0.9% NS 250 ML IVPB PRN (10:26)
[2019-08-10 10:38] LABS: ALT (SGPT) 7 U/L (8-55); AST (SGOT) 17 U/L (5-34); Albumin 2.7 g/dL (3.4-4.8); Alkaline Phosphatase 81 U/L (40-110); Anion Gap 13 mmol/L (10-20); BUN (Urea Nitrogen) 34 mg/dL (9.8-20.1); Bilirubin, Total 0.7 mg/dL (0.2-1.2); Calc. Creatinine Clearance 30 mL/min (70-130); Carbon Dioxide 26 mmol/L (23-31); Chloride 104 mmol/L (98-107); Estimated GFR-MDRD 39; Globulin 3.3 g/dL (2.4-3.5); Glucose 158 mg/dL (83-110); Potassium 4.6 mmol/L (3.5-5.1); Sodium 138 mmol/L (136-145)
[2019-08-10] MEDS: cefTRIAXone\\ROCEPHIN 1 GM in Sodium Chloride 0.9% 100 ML IVPB SCH (11:10)
[2019-08-10 11:24] LABS: Hypersemented Neutrophil SLIGHT; Hypochromia SLIGHT = 6-15 cells (100X) (0-5/hpf); Lymphocytes 3 % (21-51); MDiff Complete? YES; Monocytes 9 % (0-10); Neutrophil 88 % (42-75); Ovalocytes SLIGHT = 2-5 cells (100X) (0-1/hpf); Platelet Morphology Comment Appears Decreased; Polychromasia SLIGHT = 2-3 cells (100X) (0-2/hpf)
--- NOTE | 2019-08-10 11:49 | OP ---
DATE OF PROCEDURE: 08/08/2019 PROCEDURE PERFORMED: Thoracentesis. INDICATION: Pleural effusion. DESCRIPTION OF PROCEDURE: Informed consent from the patient was obtained with the help of two nurses sitting upright in bed. The right posterior thorax was cleaned with chlorhexidine. 1% lidocaine was infiltrated into the 9th intercoastal space in the midscapular area, and pleural cavity was entered, and very pale yellow fluid was removed appeared to be transudate, 20 mL. An 8-Upper [place] catheter was inserted. A total of 2 L of fluid was removed without any difficulty. Fluid sent for appropriate studies including cytology and culture. The patient tolerated the procedure well. Job ID: [id number]
--- NOTE | 2019-08-10 11:51 | OP ---
DATE OF PROCEDURE: 08/08/2019 Post thoracentesis, the lung did not expand. She had a loculated pneumothorax. We thought she was asymptomatic, but because it is relatively loculated, we tried to re-expand, therefore after informed consent from the and the patient sitting upright in bed, the same right posterior thorax was cleaned with chlorhexidine, lidocaine was infiltrated into the 9th intercostal space, and a small bore chest tube was inserted. It was connected to a Heimlich while initially which was suctioning well suggesting it is in good place. Thereafter, chest tube was connected to underwater suction. Unfortunately, lung had not expanded. I am thinking more than likely this lung has been trapped. We will discuss with cardiothoracic surgery regarding any additional options. The patient otherwise tolerated the procedure well. Sats remained 100%. Blood pressures improved to 99 systolic on Dobutrex. Job ID: [id number]
--- NOTE | 2019-08-10 13:06 | PRG ---
DATE OF SERVICE: 08/10/2019 SUBJECTIVE: Patient was seen and examined at bedside and overnight events noted. Patient denies any shortness of breath or chest pain or palpitation. No history of nausea or vomiting or diarrhea or fever or chills or cramps. OBJECTIVE: GENERAL: This is a well-built female, in no apparent distress. VITAL SIGNS: Temperature 98.1. Heart rate 76. Respiratory rate 18. Blood pressure 112/43. HEENT: Atraumatic, normocephalic. Oral mucosa is moist. NECK: Supple. CARDIOVASCULAR: S1, S2 heard. Rate and rhythm regular. RESPIRATORY: Clear to auscultation. GASTROINTESTINAL: Abdomen is soft. MUSCULOSKELETAL: No tenderness. No edema. DERMATOLOGIC: No skin rash. NEUROLOGIC: Alert and awake and oriented X3. No focal neurologic deficits. Moving all the extremities. PSYCHIATRIC: Mood and affect normal. LABORATORY DATA: Potassium 4.6, BUN is 34, creatinine is 1.5. ASSESSMENT AND PLAN: 1. Acute kidney injury on chronic kidney disease stage 3 with slow improvement in renal function. 2. Cardiorenal syndrome. Follow with Cardiology. 3. Anemia. 4. Edema. 5. Hypertension. 6. Labs are getting better. Job ID: [id number]
--- NOTE | 2019-08-10 13:25 | PDOC.HOSPP ---
- Subjective Encounter Date: 08/10/19 Encounter Time: 12:30 Subjective: awake, responds to verbal stimuli, very hard of hearing at bedside - Objective Vital Signs & Weight: Vital Signs (12 hours) Temp Pulse Ox 08/10/19 07:16 92 L 08/10/19 06:54 98.1 F Weight Admit Weight 133 lb 2.56 oz Weight 141 lb 5.061 oz Most Recent Monitor Data Heart Rate from ECG 70 NIBP 98/59 NIBP BP-Mean 72 Respiration from ECG 17 SpO2 88 I&O: 08/09/19 08/10/19 08/11/19 05:59 06:59 06:59 Intake Total 240 Output Total Balance 240 Result Diagrams: 08/10/19 10:09 08/10/19 10:09 Hospitalist ROS - Medication Medications: Active Medications Generic Name Dose Route Start Last Admin Trade Name Freq PRN Reason Stop Dose Admin Acetaminophen 650 mg 08/08/19 15:19 08/09/19 16:11 Tylenol PO 650 mg Q4H PRN Administration Headache/Fever/Mild Pain (1-3) Aspirin 81 mg 08/09/19 09:00 08/10/19 08:34 Aspirin Chewable PO 81 mg DAILY ZACHARY Administration Furosemide 40 mg 08/09/19 06:00 08/10/19 05:35 Lasix SLOW IVP Not Given 0600,1400 ZACHARY Dobutamine HCl/Dextrose 250 mls @ 4.725 mls/hr 08/08/19 17:45 08/10/19 00:53 Dobutamine 500 Mg/250 Ml IVPB 250 mls INF ZACHARY Administration Protocol 2.5 MCG/KG/MIN Norepinephrine Bitartrate 250 mls @ 0 mls/hr 08/09/19 04:14 08/10/19 10:26 Levophed IVPB 250 mls INF PRN Administration TO KEEP MAP > 65 Protocol Titrate Ceftriaxone Sodium 1 gm/ 100 mls @ 200 mls/hr 08/09/19 11:30 08/10/19 11:10 Sodium Chloride IVPB 100 mls Q24HR ZACHARY Administration Lorazepam 0.5 mg 08/10/19 09:46 08/10/19 10:05 Ativan SLOW IVP 0.5 mg Q6H PRN Administration Anxiety/Agitation Miscellaneous Medication 0 gm 08/08/19 21:07 08/10/19 04:50 Preparation H Ointment TOP 1 applic ASDIR PRN Administration Hemorrhoids Pantoprazole Sodium 40 mg 08/09/19 09:00 08/10/19 08:34 Protonix PO 40 mg DAILY ZACHARY Administration Senna/Docusate Sodium 2 tab 08/08/19 15:19 08/09/19 20:22 Senokot S PO 2 tab BIDPRN PRN Administration Constipation Sodium Chloride 10 ml 08/09/19 09:00 08/10/19 08:34 Flush - Normal Saline IVF 10 ml Q12HR ZACHARY Administration - Exam General Appearance: awake alert Eye: PERRL, anicteric sclera ENT: no oropharyngeal lesions, dry oral mucosa Neck: supple, no JVD Heart: RRR, no murmur Respiratory: no wheezes, no rales, rhonchi Gastrointestinal: soft, non-tender, non-distended, normal bowel sounds Extremities: no cyanosis, 2+ LE edema Neurological: cranial nerve grossly intact, no focal deficits Hosp A/P (1) Acute exacerbation of CHF (congestive heart failure) Code(s): I50.9 - HEART FAILURE, UNSPECIFIED Status: Acute Qualifiers: Heart failure type: diastolic Qualified Code(s): I50.33 - Acute on chronic diastolic (congestive) heart failure (2) Cardiogenic shock Code(s): R57.0 - CARDIOGENIC SHOCK Status: Acute (3) Recurrent right pleural effusion Code(s): J90 - PLEURAL EFFUSION, NOT ELSEWHERE CLASSIFIED Status: Acute (4) ASH (acute kidney injury) Code(s): N17.9 - ACUTE KIDNEY FAILURE, UNSPECIFIED Status: Acute (5) CAD (coronary artery disease) Code(s): I25.10 - ATHSCL HEART DISEASE OF [place] CORONARY ARTERY W/O ANG PCTRS Status: Chronic Qualifiers: Coronary Disease-Associated Artery/Lesion type: bypass graft [place] vs. transplanted heart: [place] heart Associated angina: without angina Qualified Code(s): I25.810 - Atherosclerosis of coronary artery bypass graft(s) without angina pectoris (6) Dyslipidemia Code(s): E78.5 - HYPERLIPIDEMIA, UNSPECIFIED Status: Chronic - Plan is on dobutamine and levophed, still has low MAP, d/w , may dc dobutamine and go up on levophed if needed ef is normal, has severely elevated rvsp had thoracentesis yesterday on right side continue ceftriaxone, asp, trial of prednisone and florinef to see if her BP improves (has very poor prognosis), nebs prn prognosis poor prior ef was 30%. Myoclonic jerks due to organ failure d/w at bedside, is aware of guarded to poor prognosis.
[2019-08-10] MEDS ORDERED: predniSONE 20 MG TAB PO SCH (13:30)
[2019-08-10] MEDS ORDERED: Fludrocortisone Acetate 0.1 MG TAB PO SCH (13:30)
--- NOTE | 2019-08-10 15:58 | PDOC.CPN ---
- Subjective Date: 08/10/19 Time: 15:56 Interval history: No new issues. Remains borderline hypotensive. - Review of Systems General: denies: fever/chills, weight/appetite/sleep changes, night sweats, fatigue Respiratory: denies: cough, congestion, shortness of breath, exercise intolerance Cardiovascular: denies: chest pain, palpitation, edema, paroxysmal nocturnal dyspnea, orthopnea Gastrointestinal: denies: nausea, vomiting, diarrhea, constipation, abd pain, GI bleeding Musculoskeletal: denies: pain, tenderness, stiffness, swelling, arthritis/ arthralgias Neurological: denies: numbness, syncope, seizure, weakness - Objective Allergies/Adverse Reactions: Allergies Allergy/AdvReac Type Severity Reaction Status Date / Time No Known Allergies Allergy Verified 08/08/19 18:09 Visit Medications: Current Medications Acetaminophen (Tylenol) 650 mg PO Q4H PRN PRN Reason: Headache/Fever/Mild Pain (1-3) Last Admin: 08/09/19 16:11 Dose: 650 mg Aspirin (Aspirin Chewable) 81 mg PO DAILY [facility] Last Admin: 08/10/19 08:34 Dose: 81 mg Bisacodyl (Dulcolax) 10 mg [place] DAILYPRN PRN PRN Reason: Constipation Fludrocortisone Acetate (Florinef) 0.1 mg PO DAILY ZACHARY Furosemide (Lasix) 40 mg SLOW IVP 0600,1400 [facility] Last Admin: 08/10/19 13:55 Dose: Not Given Guaifenesin/Dextromethorphan (Robitussin Dm) 15 ml PO Q4H PRN PRN Reason: Cough Dobutamine HCl/Dextrose (Dobutamine 500 Mg/250 Ml) 250 mls @ 4.725 mls/hr IVPB INF ZACHARY; Protocol Last Admin: 08/10/19 00:53 Dose: 250 mls Norepinephrine Bitartrate (Levophed) 250 mls @ 0 mls/hr IVPB INF PRN; Protocol PRN Reason: TO KEEP MAP > 65 Last Admin: 08/10/19 10:26 Dose: 250 mls Ceftriaxone Sodium 1 gm/ (Sodium Chloride) 100 mls @ 200 mls/hr IVPB Q24HR [facility] Last Admin: 08/10/19 11:10 Dose: 100 mls Lorazepam (Ativan) 0.5 mg SLOW IVP Q6H PRN PRN Reason: Anxiety/Agitation Last Admin: 08/10/19 10:05 Dose: 0.5 mg Miscellaneous Medication (Preparation H Ointment) 0 gm TOP ASDIR PRN PRN Reason: Hemorrhoids Last Admin: 08/10/19 04:50 Dose: 1 applic Ondansetron HCl (Zofran) 4 mg IVP Q6H PRN PRN Reason: Nausea/Vomiting Pantoprazole Sodium (Protonix) 40 mg PO DAILY [facility] Last Admin: 08/10/19 08:34 Dose: 40 mg Prednisone (Prednisone) 20 mg PO QAM-WM [facility] Senna/Docusate Sodium (Senokot S) 2 tab PO BIDPRN PRN PRN Reason: Constipation Last Admin: 08/09/19 20:22 Dose: 2 tab Sodium Chloride (Flush - Normal Saline) 10 ml IVF Q12HR [facility] Last Admin: 08/10/19 08:34 Dose: 10 ml Sodium Chloride (Flush - Normal Saline) 10 ml IVF PRN PRN PRN Reason: Saline Flush Vital Signs & Weight: Vital Signs Temp Pulse Ox 08/10/19 14:00 98.3 F 08/10/19 07:16 92 L 08/10/19 06:54 98.1 F Admit Weight 133 lb 2.56 oz Weight 141 lb 5.061 oz - Physical Exam General: no apparent distress HEENT: normocephaly Neck: supple neck Cardiac: regular rate and rhythm Lungs: absent breath sounds Neuro: grossly intact Abdomen: active bowel sounds Extremities: no edema Skin: clear Musculoskeletal: no pain - Labs Result Diagrams: 08/10/19 10:09 08/10/19 10:09 Troponin/CKMB CK-MB (CK-2) 8.3 ng/mL (0-6.6) H* 08/08/19 10:48 Troponin I 0.167 ng/mL (< 0.028) H 08/08/19 10:48 - Telemetry Sinus rhythms and dysrhythmias: sinus rhythm - Assessment/Plan Assessment/Plan: 1. Large right sided pleural effusion 2. [place]/pneumothorax right 3. Chronic systolic heart failure., EF on echo today at 60% 4. Hypotension 5. 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 Pulmonary HTN RVSP 68 mmHg. PLAN: - Continue pressor and inotropic support. Would lean more on pressor support as her LV function is normal. - Likely increased right sided pressures related to hydro pneumothorax - Will need diuresis once BP allows. - Will interrogate device.
[2019-08-11] MEDS: Norepinephrine 8 MG/0.9% NS 250 ML IVPB PRN (02:11)
[2019-08-11 05:00] LABS: ALT (SGPT) 10 U/L (8-55); AST (SGOT) 19 U/L (5-34); Albumin 2.7 g/dL (3.4-4.8); Alkaline Phosphatase 71 U/L (40-110); Anion Gap 11 mmol/L (10-20); BUN (Urea Nitrogen) 33 mg/dL (9.8-20.1); Bilirubin, Total 0.5 mg/dL (0.2-1.2); Calc. Creatinine Clearance 34 mL/min (70-130); Calcium 8.2 mg/dL (7.8-10.44); Carbon Dioxide 30 mmol/L (23-31); Chloride 104 mmol/L (98-107); Estimated GFR-MDRD 45; Globulin 3.4 g/dL (2.4-3.5); Glucose 129 mg/dL (83-110); Potassium 4.5 mmol/L (3.5-5.1); Protein, Total 6.1 g/dL (6.0-8.3); Sodium 140 mmol/L (136-145)
[2019-08-11 05:01] LABS: Band 1 % (5-11); Hemoglobin 8.6 g/dL (12.0-16.0); Lymphocytes 5 % (21-51); MDiff Complete? YES; Macrocytosis SLIGHT = 6-15 cells (100X) (0-5/hpf); Mean Corpuscular HGB CONC 31.7 g/dL (32.0-36.0); Mean Corpuscular Hemoglobin 33.4 pg (27.0-31.0); Mean Platelet Volume 9.3 fL (7.4-10.4); Monocytes 6 % (0-10); Neutrophil 88 % (42-75); Platelet Count 90 thou/uL (130-400); Platelet Morphology Comment Appears Decreased; RBC Distribution Width 15.3 % (11.5-14.5); Red Blood Cell (RBC) Count 2.58 mill/uL (4.20-5.40)
[2019-08-11] MEDS: Furosemide 40 MG/4 ML VIAL SLOW IVP SCH ×2 (06:28→13:58)
[2019-08-11] MEDS: predniSONE 20 MG TAB PO SCH (07:59)
--- NOTE | 2019-08-11 08:07 | RAD ---
Chest one view HISTORY: Pneumothorax. Follow-up. COMPARISON: 08/10/2019 and 08/09/2019. FINDINGS: Patient is rotated rightward. Prominent collapse of the right lung is again demonstrated. T he lung is favored to be less well aerated than on the prior study. Interval increase in fluid on the right. Small amount of fluid also evident on the left. Postoperative changes mediastinum again demonstrated. Multi lead left subclavian cardiac electronic d evice in place. IMPRESSION: Interval radiographic worsening of right hydropneumothorax. Small amount of left pleural fluid is stable. Findings were called to [facility] in the CCU and sent via [employer] to Dr. Villarreal at the time of the dictati on. Code CR
[2019-08-11] MEDS: Aspirin Chewable 81 MG TAB PO SCH (09:26)
[2019-08-11] MEDS: Fludrocortisone Acetate 0.1 MG TAB PO SCH (09:26)
[2019-08-11] MEDS: cefTRIAXone\\ROCEPHIN 1 GM in Sodium Chloride 0.9% 100 ML IVPB SCH (11:17)
--- NOTE | 2019-08-11 11:23 | PRG ---
DATE OF SERVICE: 08/11/2019 SUBJECTIVE: A 79-year-old female, being seen for acute kidney injury. The patient denies any nausea, vomiting, or chest pain. PHYSICAL EXAMINATION: General: The patient is awake and alert. Vital Signs: Afebrile, pulse 72, breathing at 16, blood pressure 106/69. HEENT: Head normocephalic and atraumatic. Eyes intact, no ulcers. Nose intact, no ulcers. Ears intact, no ulcers. Neck: Supple. No JVD. Chest: Symmetrical and clear. Cardiovascular: Shows S1 and S2, no rub, no murmur. Gastrointestinal: Abdomen is soft, bowel sounds positive. Extremities: Show no edema or ulcers. Skin: Shows no rash or petechiae. Musculoskeletal: Shows no joint swelling or stiffness. Genitourinary: Shows no Bog[place] or CVA tenderness. Neurologic: Motor intact. Cranial nerves intact. LABORATORY DATA: Reviewed. ASSESSMENT AND PLAN: 1. Stage 3 chronic kidney disease, stable. 2. Acute kidney injury, resolved. 3. Hypertension, stable. 4. Anemia, stable. I will sign off on this patient. Please reconsult as needed. Job ID: [id number]
--- NOTE | 2019-08-11 15:15 | PDOC.CPN ---
- Subjective Date: 08/11/19 Time: 15:13 Interval history: She is doing better today. She is off pressors. - Review of Systems General: denies: fever/chills, weight/appetite/sleep changes, night sweats, fatigue Respiratory: denies: cough, congestion, shortness of breath, exercise intolerance Cardiovascular: denies: chest pain, palpitation, edema, paroxysmal nocturnal dyspnea, orthopnea Gastrointestinal: denies: nausea, vomiting, diarrhea, constipation, abd pain, GI bleeding Musculoskeletal: denies: pain, tenderness, stiffness, swelling, arthritis/ arthralgias Neurological: denies: numbness, syncope, seizure, weakness - Objective Allergies/Adverse Reactions: Allergies Allergy/AdvReac Type Severity Reaction Status Date / Time No Known Allergies Allergy Verified 08/08/19 18:09 Visit Medications: Current Medications Acetaminophen (Tylenol) 650 mg PO Q4H PRN PRN Reason: Headache/Fever/Mild Pain (1-3) Last Admin: 08/09/19 16:11 Dose: 650 mg Aspirin (Aspirin Chewable) 81 mg PO DAILY [facility] Last Admin: 08/11/19 09:26 Dose: 81 mg Bisacodyl (Dulcolax) 10 mg [place] DAILYPRN PRN PRN Reason: Constipation Fludrocortisone Acetate (Florinef) 0.1 mg PO DAILY [facility] Last Admin: 08/11/19 09:26 Dose: 0.1 mg Furosemide (Lasix) 40 mg SLOW IVP 0600,1400 [facility] Last Admin: 08/11/19 13:58 Dose: Not Given Guaifenesin/Dextromethorphan (Robitussin Dm) 15 ml PO Q4H PRN PRN Reason: Cough Dobutamine HCl/Dextrose (Dobutamine 500 Mg/250 Ml) 250 mls @ 4.725 mls/hr IVPB INF [facility]; Protocol Last Admin: 08/10/19 00:53 Dose: 250 mls Norepinephrine Bitartrate (Levophed) 250 mls @ 0 mls/hr IVPB INF PRN; Protocol PRN Reason: TO KEEP MAP > 65 Last Admin: 08/11/19 02:11 Dose: 250 mls Ceftriaxone Sodium 1 gm/ (Sodium Chloride) 100 mls @ 200 mls/hr IVPB Q24HR [facility] Last Admin: 08/11/19 11:17 Dose: 100 mls Lorazepam (Ativan) 0.5 mg SLOW IVP Q6H PRN PRN Reason: Anxiety/Agitation Last Admin: 08/10/19 21:18 Dose: 0.5 mg Miscellaneous Medication (Preparation H Ointment) 0 gm TOP ASDIR PRN PRN Reason: Hemorrhoids Last Admin: 08/10/19 04:50 Dose: 1 applic Ondansetron HCl (Zofran) 4 mg IVP Q6H PRN PRN Reason: Nausea/Vomiting Pantoprazole Sodium (Protonix) 40 mg PO DAILY [facility] Last Admin: 08/11/19 09:26 Dose: 40 mg Prednisone (Prednisone) 20 mg PO QAM-WM [facility] Last Admin: 08/11/19 07:59 Dose: 20 mg Senna/Docusate Sodium (Senokot S) 2 tab PO BIDPRN PRN PRN Reason: Constipation Last Admin: 08/09/19 20:22 Dose: 2 tab Sodium Chloride (Flush - Normal Saline) 10 ml IVF Q12HR [facility] Last Admin: 08/11/19 09:27 Dose: 10 ml Sodium Chloride (Flush - Normal Saline) 10 ml IVF PRN PRN PRN Reason: Saline Flush Vital Signs & Weight: Vital Signs Temp Pulse Ox 08/11/19 12:00 98.1 F 08/11/19 08:00 97.9 F 94 L 08/11/19 05:00 98.1 F Admit Weight 133 lb 2.56 oz Weight 142 lb 3.17 oz - Physical Exam General: appears well HEENT: mucus membranes moist Neck: supple neck Cardiac: regular rate and rhythm Lungs: normal breath sounds Neuro: no lateralizing findings Abdomen: active bowel sounds Extremities: 1+ LE edema Skin: clear Musculoskeletal: no pain - Labs Result Diagrams: 08/11/19 04:23 08/11/19 04:23 Troponin/CKMB CK-MB (CK-2) 8.3 ng/mL (0-6.6) H* 08/08/19 10:48 Troponin I 0.167 ng/mL (< 0.028) H 08/08/19 10:48 - Telemetry Sinus rhythms and dysrhythmias: sinus rhythm - Assessment/Plan Assessment/Plan: 1. Large right sided pleural effusion 2. [place]/pneumothorax right 3. Chronic diastolic heart failure., EF on echo today at 60% 4. Hypotension, resolved. 5. 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 Pulmonary HTN RVSP 68 mmHg. PLAN: - No tachy arrhythmias on device interrogation. - BP borderline now off all pressor and innotropic support. - Continue IV diuresis.
--- NOTE | 2019-08-11 19:48 | PDOC.HOSPP ---
- Subjective Encounter Date: 08/11/19 Subjective: The patient was seen and examined.. She is sitting in the chair eating her lunch Denies any significant shortness of breath. - Objective Vital Signs & Weight: Vital Signs (12 hours) Temp Pulse Ox 08/11/19 16:00 98.1 F 08/11/19 12:00 98.1 F 08/11/19 08:00 97.9 F 94 L Weight Admit Weight 133 lb 2.56 oz Weight 142 lb 3.17 oz Most Recent Monitor Data Heart Rate from ECG 70 NIBP 103/61 NIBP BP-Mean 75 Respiration from ECG 29 SpO2 100 I&O: 08/10/19 08/11/19 08/12/19 06:59 06:59 06:59 Intake Total 1086.7 232 Output Total 0 3 Balance 1086.7 229 Result Diagrams: 08/11/19 04:23 08/11/19 04:23 Hospitalist ROS - Medication Medications: Active Medications Generic Name Dose Route Start Last Admin Trade Name Freq PRN Reason Stop Dose Admin Acetaminophen 650 mg 08/08/19 15:19 08/09/19 16:11 Tylenol PO 650 mg Q4H PRN Administration Headache/Fever/Mild Pain (1-3) Aspirin 81 mg 08/09/19 09:00 08/11/19 09:26 Aspirin Chewable PO 81 mg DAILY [facility] Administration Fludrocortisone Acetate 0.1 mg 08/11/19 09:00 08/11/19 09:26 Florinef PO 0.1 mg DAILY [facility] Administration Furosemide 40 mg 08/09/19 06:00 08/11/19 13:58 Lasix SLOW IVP Not Given 0600,1400 [facility] Dobutamine HCl/Dextrose 250 mls @ 4.725 mls/hr 08/08/19 17:45 08/10/19 00:53 Dobutamine 500 Mg/250 Ml IVPB 250 mls INF [facility] Administration Protocol 2.5 MCG/KG/MIN Norepinephrine Bitartrate 250 mls @ 0 mls/hr 08/09/19 04:14 08/11/19 02:11 Levophed IVPB 250 mls INF PRN Administration TO KEEP MAP > 65 Protocol Titrate Ceftriaxone Sodium 1 gm/ 100 mls @ 200 mls/hr 08/09/19 11:30 08/11/19 11:17 Sodium Chloride IVPB 100 mls Q24HR [facility] Administration Lorazepam 0.5 mg 08/10/19 09:46 08/10/19 21:18 Ativan SLOW IVP 0.5 mg Q6H PRN Administration Anxiety/Agitation Miscellaneous Medication 0 gm 08/08/19 21:07 08/10/19 04:50 Preparation H Ointment TOP 1 applic ASDIR PRN Administration Hemorrhoids Pantoprazole Sodium 40 mg 08/09/19 09:00 08/11/19 09:26 Protonix PO 40 mg DAILY [facility] Administration Prednisone 20 mg 08/11/19 08:00 08/11/19 07:59 Prednisone PO 20 mg QAM-WM [facility] Administration Senna/Docusate Sodium 2 tab 08/08/19 15:19 08/09/19 20:22 Senokot S PO 2 tab BIDPRN PRN Administration Constipation Sodium Chloride 10 ml 08/09/19 09:00 08/11/19 09:27 Flush - Normal Saline IVF 10 ml Q12HR [facility] Administration - Exam General Appearance: NAD ENT: normocephalic atraumatic Neck: supple, symmetric, no JVD Heart: RRR, no murmur, no gallops, no rubs, normal peripheral pulses Respiratory: CTAB, no wheezes, no rales, no ronchi, normal chest expansion Hosp A/P (1) Acute exacerbation of CHF (congestive heart failure) Code(s): I50.9 - HEART FAILURE, UNSPECIFIED Status: Acute Qualifiers: Heart failure type: diastolic Qualified Code(s): I50.33 - Acute on chronic diastolic (congestive) heart failure (2) ASH (acute kidney injury) Code(s): N17.9 - ACUTE KIDNEY FAILURE, UNSPECIFIED Status: Acute (3) Cardiogenic shock Code(s): R57.0 - CARDIOGENIC SHOCK Status: Acute (4) Recurrent right pleural effusion Code(s): J90 - PLEURAL EFFUSION, NOT ELSEWHERE CLASSIFIED Status: Acute (5) CAD (coronary artery disease) Code(s): I25.10 - ATHSCL HEART DISEASE OF [place] CORONARY ARTERY W/O ANG PCTRS Status: Chronic Qualifiers: Coronary Disease-Associated Artery/Lesion type: bypass graft [place] vs. transplanted heart: [place] heart Associated angina: without angina Qualified Code(s): I25.810 - Atherosclerosis of coronary artery bypass graft(s) without angina pectoris (6) Dyslipidemia Code(s): E78.5 - HYPERLIPIDEMIA, UNSPECIFIED Status: Chronic - Plan Cardiogenic shock resolved with dobutamine drip been discontinued overnight and norepinephrine drip being held earlier in the morning. The patient has no new complaints. Her creatinine level is back to baseline. Status post thoracentesis yesterday with fluid analysis revealing transudative effusion. Chest x-ray this morning showing some worsening of the hydropneumothorax. Pulmonary service were notified.
[2019-08-12] MEDS: Senokot S 8.6-50 MG TAB PO PRN ×2 (03:00→08:06)
[2019-08-12 05:16] LABS: Anion Gap 11 mmol/L (10-20); BUN (Urea Nitrogen) 36 mg/dL (9.8-20.1); Calc. Creatinine Clearance 30 mL/min (70-130); Calcium 8.2 mg/dL (7.8-10.44); Carbon Dioxide 29 mmol/L (23-31); Chloride 105 mmol/L (98-107); Estimated GFR-MDRD 39; Glucose 148 mg/dL (83-110); Potassium 4.5 mmol/L (3.5-5.1); Sodium 140 mmol/L (136-145)
[2019-08-12] MEDS: Furosemide 40 MG/4 ML VIAL SLOW IVP SCH ×2 (06:26→14:27)
[2019-08-12] MEDS: predniSONE 20 MG TAB PO SCH (08:32)
[2019-08-12] MEDS: Aspirin Chewable 81 MG TAB PO SCH (08:32)
[2019-08-12] MEDS: Fludrocortisone Acetate 0.1 MG TAB PO SCH (08:32)
[2019-08-12] MEDS: cefTRIAXone\\ROCEPHIN 1 GM in Sodium Chloride 0.9% 100 ML IVPB SCH (11:37)
--- NOTE | 2019-08-12 16:03 | PRG ---
DATE OF SERVICE: 08/12/2019 SERVICE: Pulmonary Medicine. INTERVAL HISTORY: The patient is doing fine from respiratory standpoint. She is breathing comfortably. Her biggest complaint is that she has not had a bowel movement. Otherwise, there has been no interval change to her condition. PHYSICAL EXAMINATION: VITAL SIGNS: Afebrile, pulse 70, blood pressure 99/62, respirations 25, and saturation 100%, currently on 2 L nasal cannula. GENERAL: The patient is awake and alert, in no apparent distress. LUNGS: Good air entry on the left. Decreased air entry at the right base. No prolonged expiratory phase or wheezing is appreciated. HEART: Normal rate. Regular. ABDOMEN: Soft, nontender, and nondistended. Bowel sounds are positive. MUSCULOSKELETAL: No cyanosis or clubbing. There is 1 to 2+ pitting in the bilateral lower extremities, which is significantly improved. NEUROLOGIC: Grossly nonfocal. LABORATORY DATA: WBC 9.0, hemoglobin 8.6, platelets 90,000 which are stable. Neutrophils are 88% on top of a very few bands. INR 2.3. Creatinine 1.55 and gently up-trending. Urinalysis is unremarkable. Body fluid analysis is consistent with transudate. Body fluid culture is negative. Urine culture and blood cultures x2 are unremarkable. Pathology on the fluid is negative for malignant cells. IMAGING: Chest x-ray demonstrates interval removal of the anterior thoracostomy tube. She has a hydropneumothorax ex vacuo. The effusion is filling back up. ASSESSMENT: 1. Acute hypoxic respiratory failure secondary to volume overload. 2. Hydropneumothorax ex vacuo of a trapped lung. 3. Acute on chronic diastolic heart failure. 4. Pulmonary hypertension, likely multifactorial. DISCUSSION AND PLAN: The patient is stable for transition out of the ICU to the telemetry unit. We will back off on the Lasix and continue this when she resolves her contraction alkalosis. She is significantly volume down compared to her presentation. No additional thoracentesis should ever be entertained unless this space is thought to be infected. This fluid has had negative cytology x2 and was a very clear transudate on both occasions. As such, additional thoracentesis is not indicated. Pulmonary/Critical Care will continue to follow along for the time being. She should have a repeat chest x-ray in the outpatient setting, but my expectations are that she will have a complete recurrence of this effusion. Job ID: [id number]
--- NOTE | 2019-08-12 17:19 | PDOC.CPN ---
- Subjective Date: 08/12/19 Time: 17:17 Interval history: Her only complaint today is constipation. - Review of Systems General: denies: fever/chills, weight/appetite/sleep changes, night sweats, fatigue Respiratory: reports: shortness of breath, exercise intolerance. denies: cough , congestion Cardiovascular: reports: edema. denies: chest pain, palpitation, paroxysmal nocturnal dyspnea, orthopnea Gastrointestinal: denies: nausea, vomiting, diarrhea, constipation, abd pain, GI bleeding Musculoskeletal: denies: pain, tenderness, stiffness, swelling, arthritis/ arthralgias Neurological: denies: numbness, syncope, seizure, weakness - Objective Allergies/Adverse Reactions: Allergies Allergy/AdvReac Type Severity Reaction Status Date / Time No Known Allergies Allergy Verified 08/08/19 18:09 Visit Medications: Current Medications Acetaminophen (Tylenol) 650 mg PO Q4H PRN PRN Reason: Headache/Fever/Mild Pain (1-3) Last Admin: 08/09/19 16:11 Dose: 650 mg Aspirin (Aspirin Chewable) 81 mg PO DAILY [facility] Last Admin: 08/12/19 08:32 Dose: 81 mg Bisacodyl (Dulcolax) 10 mg [place] DAILYPRN PRN PRN Reason: Constipation Fludrocortisone Acetate (Florinef) 0.1 mg PO DAILY [facility] Last Admin: 08/12/19 08:32 Dose: 0.1 mg Guaifenesin/Dextromethorphan (Robitussin Dm) 15 ml PO Q4H PRN PRN Reason: Cough Dobutamine HCl/Dextrose (Dobutamine 500 Mg/250 Ml) 250 mls @ 4.725 mls/hr IVPB INF [facility]; Protocol Last Admin: 08/10/19 00:53 Dose: 250 mls Norepinephrine Bitartrate (Levophed) 250 mls @ 0 mls/hr IVPB INF PRN; Protocol PRN Reason: TO KEEP MAP > 65 Last Admin: 08/11/19 02:11 Dose: 250 mls Ceftriaxone Sodium 1 gm/ (Sodium Chloride) 100 mls @ 200 mls/hr IVPB Q24HR [facility] Last Admin: 08/12/19 11:37 Dose: 100 mls Lorazepam (Ativan) 0.5 mg SLOW IVP Q6H PRN PRN Reason: Anxiety/Agitation Last Admin: 08/10/19 21:18 Dose: 0.5 mg Miscellaneous Medication (Preparation H Ointment) 0 gm TOP ASDIR PRN PRN Reason: Hemorrhoids Last Admin: 08/10/19 04:50 Dose: 1 applic Ondansetron HCl (Zofran) 4 mg IVP Q6H PRN PRN Reason: Nausea/Vomiting Pantoprazole Sodium (Protonix) 40 mg PO DAILY [facility] Last Admin: 08/12/19 08:32 Dose: 40 mg Prednisone (Prednisone) 20 mg PO QAM-WM [facility] Last Admin: 08/12/19 08:32 Dose: 20 mg Senna/Docusate Sodium (Senokot S) 2 tab PO BIDPRN PRN PRN Reason: Constipation Last Admin: 08/12/19 08:06 Dose: 2 tab Sodium Chloride (Flush - Normal Saline) 10 ml IVF Q12HR [facility] Last Admin: 08/12/19 08:33 Dose: 10 ml Sodium Chloride (Flush - Normal Saline) 10 ml IVF PRN PRN PRN Reason: Saline Flush Vital Signs & Weight: Vital Signs Temp Pulse Pulse BP BP Pulse Ox 08/12/19 16:00 97.8 F 08/12/19 11:00 97.9 F 08/12/19 09:04 70 70 102/62 121/62 08/12/19 07:47 99 08/12/19 07:00 97.6 F Admit Weight 133 lb 2.56 oz Weight 146 lb 2.664 oz - Physical Exam General: no apparent distress HEENT: mucus membranes moist Neck: supple neck Cardiac: no murmur Lungs: absent breath sounds Neuro: grossly intact Abdomen: active bowel sounds Extremities: 1+ LE edema Skin: clear Musculoskeletal: no pain - Labs Result Diagrams: 08/11/19 04:23 08/12/19 04:47 Troponin/CKMB CK-MB (CK-2) 8.3 ng/mL (0-6.6) H* 08/08/19 10:48 Troponin I 0.167 ng/mL (< 0.028) H 08/08/19 10:48 - Telemetry Sinus rhythms and dysrhythmias: sinus rhythm - Assessment/Plan Assessment/Plan: 1. Large right sided pleural effusion 2. [place]/pneumothorax right 3. Chronic diastolic heart failure., EF on echo today at 60% 4. Hypotension, improved. 5. 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 Pulmonary HTN RVSP 68 mmHg. PLAN: - No tachy arrhythmias on device interrogation. - Off levophed and dopamine. - She became hypotensive this morning after IV lasix given, will hold off any more diuresis.
--- NOTE | 2019-08-12 22:49 | PDOC.HOSPP ---
- Subjective Encounter Date: 08/12/19 Encounter Time: 13:00 Subjective: Patient became slightly hypotensive after receiving Lasix this morning. Otherwise no new events. - Objective Vital Signs & Weight: Vital Signs (12 hours) Temp 08/12/19 19:00 97.8 F 08/12/19 16:00 97.8 F 08/12/19 11:00 97.9 F Weight Admit Weight 133 lb 2.56 oz Weight 146 lb 2.664 oz Most Recent Monitor Data Heart Rate from ECG 70 NIBP 104/51 NIBP BP-Mean 68 Respiration from ECG 13 SpO2 100 I&O: 08/11/19 08/12/19 08/13/19 06:59 06:59 06:59 Intake Total 1086.7 572 805 Output Total 0 6 2 Balance 1086.7 566 803 Result Diagrams: 08/11/19 04:23 08/12/19 04:47 Hospitalist ROS - Medication Medications: Active Medications Generic Name Dose Route Start Last Admin Trade Name Freq PRN Reason Stop Dose Admin Acetaminophen 650 mg 08/08/19 15:19 08/09/19 16:11 Tylenol PO 650 mg Q4H PRN Administration Headache/Fever/Mild Pain (1-3) Aspirin 81 mg 08/09/19 09:00 08/12/19 08:32 Aspirin Chewable PO 81 mg DAILY [facility] Administration Fludrocortisone Acetate 0.1 mg 08/11/19 09:00 08/12/19 08:32 Florinef PO 0.1 mg DAILY [facility] Administration Dobutamine HCl/Dextrose 250 mls @ 4.725 mls/hr 08/08/19 17:45 08/10/19 00:53 Dobutamine 500 Mg/250 Ml IVPB 250 mls INF [facility] Administration Protocol 2.5 MCG/KG/MIN Norepinephrine Bitartrate 250 mls @ 0 mls/hr 08/09/19 04:14 08/11/19 02:11 Levophed IVPB 250 mls INF PRN Administration TO KEEP MAP > 65 Protocol Titrate Ceftriaxone Sodium 1 gm/ 100 mls @ 200 mls/hr 08/09/19 11:30 08/12/19 11:37 Sodium Chloride IVPB 100 mls Q24HR [facility] Administration Lorazepam 0.5 mg 08/10/19 09:46 08/10/19 21:18 Ativan SLOW IVP 0.5 mg Q6H PRN Administration Anxiety/Agitation Miscellaneous Medication 0 gm 08/08/19 21:07 08/10/19 04:50 Preparation H Ointment TOP 1 applic ASDIR PRN Administration Hemorrhoids Pantoprazole Sodium 40 mg 08/09/19 09:00 08/12/19 08:32 Protonix PO 40 mg DAILY [facility] Administration Prednisone 20 mg 08/11/19 08:00 08/12/19 08:32 Prednisone PO 20 mg QAM-WM [facility] Administration Senna/Docusate Sodium 2 tab 08/08/19 15:19 08/12/19 08:06 Senokot S PO 2 tab BIDPRN PRN Administration Constipation Sodium Chloride 10 ml 08/09/19 09:00 08/12/19 21:18 Flush - Normal Saline IVF 10 ml Q12HR [facility] Administration - Exam General Appearance: NAD ENT: normocephalic atraumatic Neck: supple Heart: RRR Respiratory: CTAB, normal chest expansion Gastrointestinal: soft, non-tender, non-distended Hosp A/P (1) Acute exacerbation of CHF (congestive heart failure) Code(s): I50.9 - HEART FAILURE, UNSPECIFIED Status: Acute Qualifiers: Heart failure type: diastolic Qualified Code(s): I50.33 - Acute on chronic diastolic (congestive) heart failure (2) ASH (acute kidney injury) Code(s): N17.9 - ACUTE KIDNEY FAILURE, UNSPECIFIED Status: Acute (3) Cardiogenic shock Code(s): R57.0 - CARDIOGENIC SHOCK Status: Acute (4) Recurrent right pleural effusion Code(s): J90 - PLEURAL EFFUSION, NOT ELSEWHERE CLASSIFIED Status: Acute (5) CAD (coronary artery disease) Code(s): I25.10 - ATHSCL HEART DISEASE OF [place] CORONARY ARTERY W/O ANG PCTRS Status: Chronic Qualifiers: Coronary Disease-Associated Artery/Lesion type: bypass graft [place] vs. transplanted heart: [place] heart Associated angina: without angina Qualified Code(s): I25.810 - Atherosclerosis of coronary artery bypass graft(s) without angina pectoris (6) Dyslipidemia Code(s): E78.5 - HYPERLIPIDEMIA, UNSPECIFIED Status: Chronic - Plan 08/10: Cardiogenic shock resolved with dobutamine drip been discontinued overnight and norepinephrine drip being held earlier in the morning. The patient has no new complaints. Her creatinine level is back to baseline. Status post thoracentesis yesterday with fluid analysis revealing transudative effusion. Chest x-ray this morning showing some worsening of the hydropneumothorax. Pulmonary service were notified. 08/11: Patient is clinically stable. Lasix being placed on hold. Cleared for transfer to medical floor.
[2019-08-13 05:02] LABS: Anion Gap 11 mmol/L (10-20); BUN (Urea Nitrogen) 38 mg/dL (9.8-20.1); Calc. Creatinine Clearance 30 mL/min (70-130); Calcium 8.4 mg/dL (7.8-10.44); Carbon Dioxide 29 mmol/L (23-31); Chloride 104 mmol/L (98-107); Estimated GFR-MDRD 38; Glucose 132 mg/dL (83-110); Potassium 4.3 mmol/L (3.5-5.1); Sodium 140 mmol/L (136-145)
[2019-08-13] MEDS: predniSONE 20 MG TAB PO SCH (08:45)
[2019-08-13] MEDS: Aspirin Chewable 81 MG TAB PO SCH (08:46)
[2019-08-13] MEDS: Fludrocortisone Acetate 0.1 MG TAB PO SCH (09:02)
--- NOTE | 2019-08-13 10:45 | PDOC.HOSPP ---
- Subjective Encounter Date: 08/13/19 Subjective: Resting comfortably No new complains - Objective Vital Signs & Weight: Vital Signs (12 hours) Temp Pulse Resp BP Pulse Ox 08/13/19 08:07 100 08/13/19 07:38 97.9 F 69 18 105/61 100 08/13/19 05:55 97.7 F 70 16 97/55 L 97 Weight Admit Weight 133 lb 2.56 oz Weight 147 lb 14.883 oz Most Recent Monitor Data Heart Rate from ECG 70 NIBP 104/51 NIBP BP-Mean 68 Respiration from ECG 13 SpO2 100 I&O: 08/12/19 08/13/19 08/14/19 06:59 06:59 06:59 Intake Total 572 925 Output Total 6 2 Balance 566 923 Result Diagrams: 08/11/19 04:23 08/13/19 04:02 Hospitalist ROS - Medication Medications: Active Medications Generic Name Dose Route Start Last Admin Trade Name Freq PRN Reason Stop Dose Admin Acetaminophen 650 mg 08/08/19 15:19 08/09/19 16:11 Tylenol PO 650 mg Q4H PRN Administration Headache/Fever/Mild Pain (1-3) Aspirin 81 mg 08/09/19 09:00 08/13/19 08:46 Aspirin Chewable PO 81 mg DAILY [facility] Administration Fludrocortisone Acetate 0.1 mg 08/11/19 09:00 08/13/19 09:02 Florinef PO 0.1 mg DAILY [facility] Administration Dobutamine HCl/Dextrose 250 mls @ 4.725 mls/hr 08/08/19 17:45 08/10/19 00:53 Dobutamine 500 Mg/250 Ml IVPB 250 mls INF [facility] Administration Protocol 2.5 MCG/KG/MIN Norepinephrine Bitartrate 250 mls @ 0 mls/hr 08/09/19 04:14 08/11/19 02:11 Levophed IVPB 250 mls INF PRN Administration TO KEEP MAP > 65 Protocol Titrate Ceftriaxone Sodium 1 gm/ 100 mls @ 200 mls/hr 08/09/19 11:30 08/12/19 11:37 Sodium Chloride IVPB 100 mls Q24HR [facility] Administration Lorazepam 0.5 mg 08/10/19 09:46 08/10/19 21:18 Ativan SLOW IVP 0.5 mg Q6H PRN Administration Anxiety/Agitation Miscellaneous Medication 0 gm 08/08/19 21:07 08/10/19 04:50 Preparation H Ointment TOP 1 applic ASDIR PRN Administration Hemorrhoids Pantoprazole Sodium 40 mg 08/09/19 09:00 08/13/19 08:46 Protonix PO 40 mg DAILY [facility] Administration Prednisone 20 mg 08/11/19 08:00 08/13/19 08:45 Prednisone PO 20 mg QAM-WM [facility] Administration Senna/Docusate Sodium 2 tab 08/08/19 15:19 08/12/19 08:06 Senokot S PO 2 tab BIDPRN PRN Administration Constipation Sodium Chloride 10 ml 08/09/19 09:00 08/13/19 08:47 Flush - Normal Saline IVF 10 ml Q12HR [facility] Administration - Exam General Appearance: NAD Neck: supple, no JVD Heart: RRR Respiratory: rhonchi Gastrointestinal: soft, non-tender Extremities: no cyanosis, no clubbing Skin: normal turgor Neurological: cranial nerve grossly intact, no focal deficits Hosp A/P (1) Acute exacerbation of CHF (congestive heart failure) Code(s): I50.9 - HEART FAILURE, UNSPECIFIED Status: Acute Qualifiers: Heart failure type: diastolic Qualified Code(s): I50.33 - Acute on chronic diastolic (congestive) heart failure (2) ASH (acute kidney injury) Code(s): N17.9 - ACUTE KIDNEY FAILURE, UNSPECIFIED Status: Acute (3) Cardiogenic shock Code(s): R57.0 - CARDIOGENIC SHOCK Status: Acute (4) Recurrent right pleural effusion Code(s): J90 - PLEURAL EFFUSION, NOT ELSEWHERE CLASSIFIED Status: Acute (5) CAD (coronary artery disease) Code(s): I25.10 - ATHSCL HEART DISEASE OF [place] CORONARY ARTERY W/O ANG PCTRS Status: Chronic Qualifiers: Coronary Disease-Associated Artery/Lesion type: bypass graft [place] vs. transplanted heart: [place] heart Associated angina: without angina Qualified Code(s): I25.810 - Atherosclerosis of coronary artery bypass graft(s) without angina pectoris (6) Dyslipidemia Code(s): E78.5 - HYPERLIPIDEMIA, UNSPECIFIED Status: Chronic - Plan 08/10: Cardiogenic shock resolved with dobutamine drip been discontinued overnight and norepinephrine drip being held earlier in the morning. The patient has no new complaints. Her creatinine level is back to baseline. Status post thoracentesis yesterday with fluid analysis revealing transudative effusion. Chest x-ray this morning showing some worsening of the hydropneumothorax. Pulmonary service were notified. 08/11: Patient is clinically stable. Lasix being placed on hold. Cleared for transfer to medical floor. 08/12: Remains stable. Restart lasix per cardiology. No indication to repeat thoracentesis. PT and OT evaluation Case management consult to assist with DC planning
[2019-08-13] MEDS: cefTRIAXone\\ROCEPHIN 1 GM in Sodium Chloride 0.9% 100 ML IVPB SCH (14:01)
--- NOTE | 2019-08-13 17:29 | RAD ---
XR Chest 1 View Portable History: Hydropneumothorax Comparison: Radiograph 2 days prior Findings: No thoracostomy tube is appreciated. No pleural effusion is appreciated, although there is lucency above the right hemithorax, likely an anterior pneumothorax. Large or effusion. Left basilar airspace opacity and small left effusion. Heart size is enlarged. Impression: Progressive enlargement of the right layering pleural effusion with anterior location of the pneumoth orax as no definite pleural line is appreciated.
--- NOTE | 2019-08-13 17:31 | PRG ---
DATE OF SERVICE: 08/13/2019 SERVICE: Pulmonary Medicine. INTERVAL HISTORY: The patient is doing really well from respiratory standpoint. Breathing comfortably. No complaints of chest discomfort, fevers, chills, nausea, vomiting, or diarrhea. She is a little bit sleepy today. She does not have much of an appetite. is not available at bedside today. She denies having any chest discomfort or difficulty breathing currently. PHYSICAL EXAMINATION: VITAL SIGNS: Afebrile, pulse 71, blood pressure 110/53, respirations 25, and saturation 100% currently on 0.5 L nasal cannula. GENERAL: The patient is awake and alert, in no apparent distress. LUNGS: Decent air entry. Crackles are present, but improved. There is decreased air entry at the right base. HEART: Normal rate. Regular. ABDOMEN: Soft, nontender, and nondistended. Bowel sounds are positive. MUSCULOSKELETAL: No cyanosis or clubbing. 1 to 2+ pitting in bilateral lower extremities. NEUROLOGIC: Grossly nonfocal. LABORATORY DATA: WBC 9.0, hemoglobin 8.6, platelets 90,000 and roughly stable. Neutrophil count is 88%. INR 2.3. Creatinine 1.58 and stable. Basic metabolic profile is otherwise unremarkable. Urinalysis is negative. Transudate is present in the pleural fluid. Blood cultures x2, urine culture, body fluid cultures negative to date. Cytology is negative. ASSESSMENT: 1. Acute hypoxic respiratory failure secondary to volume overload. 2. Hydropneumothorax ex vacuo of a likely trapped lung. 3. Acute on chronic diastolic heart failure. 4. Pulmonary hypertension, likely multifactorial. DISCUSSION AND PLAN: The patient is doing okay from respiratory standpoint. I will repeat a chest x-ray tomorrow. I expect that space to fill back up in the chest x-ray should look very similar to one that was performed prior to a previous tap. Assuming that the pneumothorax component does not look worse, and the patient is not under tension tomorrow, she can be considered for transition out of the hospital from a purely Pulmonary perspective. She has no further requirements for inpatient Pulmonary or Critical Care opinion, and I will sign off. I do not know that she is a good candidate for investigation into her pulmonary hypertension. The patient's family has suggested on multiple occasions that she would not be able to tolerate. Job ID: [id number]
[2019-08-14 05:21] LABS: Band 2 % (5-11); Hemoglobin 9.2 g/dL (12.0-16.0); Lymphocytes 8 % (21-51); MDiff Complete? YES; Mean Corpuscular HGB CONC 31.7 g/dL (32.0-36.0); Mean Corpuscular Hemoglobin 33.4 pg (27.0-31.0); Mean Platelet Volume 9.4 fL (7.4-10.4); Monocytes 14 % (0-10); Neutrophil 76 % (42-75); Nucleated RBC 2 % (0); Platelet Count 82 thou/uL (130-400); Platelet Morphology Comment Appears Decreased; RBC Distribution Width 15.1 % (11.5-14.5); Red Blood Cell (RBC) Count 2.75 mill/uL (4.20-5.40); White Blood Cell (WBC) Count 7.5 thou/uL (4.8-10.8)
[2019-08-14 05:35] LABS: Anion Gap 12 mmol/L (10-20); BUN (Urea Nitrogen) 42 mg/dL (9.8-20.1); Calc. Creatinine Clearance 29 mL/min (70-130); Calcium 8.3 mg/dL (7.8-10.44); Carbon Dioxide 27 mmol/L (23-31); Chloride 105 mmol/L (98-107); Estimated GFR-MDRD 36; Glucose 162 mg/dL (83-110); Potassium 4.2 mmol/L (3.5-5.1); Sodium 140 mmol/L (136-145)
[2019-08-14] MEDS: Fludrocortisone Acetate 0.1 MG TAB PO SCH (09:14)
[2019-08-14] MEDS: Aspirin Chewable 81 MG TAB PO SCH (09:14)
[2019-08-14] MEDS: predniSONE 20 MG TAB PO SCH (09:14)
--- NOTE | 2019-08-14 09:35 | CT ---
CT Chest WO Con History: Follow-up hydropneumothorax Comparison: Radiograph prior day Findings: Large volume right hydropneumothorax with near complete collapse of the right lung. The hyd ropneumothorax involves approximately 70% of the lung volume with the pneumothorax component approximately 20% lung volume. There are small volume right hemithorax subcutaneous emphysema. There is extensive tracking of fluid into the right lateral hemithorax soft tissues which could be tracking from the pleural space. Mild third spacing of fluid. The liver is small. There is a hypodensity within hepatic segment 2 incompletely evaluated. Multiple renal hypodensities are present. Large left layering pleural effusion involving approximately 25% of the hemithorax volume. Prior godinez scatheter aortic valve replacement. There is no acute osseous abnormality. No thoracic spine compression deformity. No acute displaced rib fracture. Impression: 1. Large right hydropneumothorax with size as above. Near-complete collapse of the right lung. 2. Asymmetric right hemithorax third spacing of fluid may be sequelae of tracking of right pleural fl uid in the right hemithorax soft tissues. 3. Large left layering pleural effusion volume approximately 25% of the hemithorax volume. 4. Small liver with hypodensity within hepatic segment 2. Dedicated liver protocol CT or MRI is recom mended. 5. Moderate perihepatic ascites. 6. Dense cholelithiasis.
[2019-08-14] MEDS: cefTRIAXone\\ROCEPHIN 1 GM in Sodium Chloride 0.9% 100 ML IVPB SCH (12:29)
--- NOTE | 2019-08-14 13:14 | PDOC.HOSPP ---
- Subjective Encounter Date: 08/14/19 Subjective: The patient is more lethargic today. - Objective Vital Signs & Weight: Vital Signs (12 hours) Temp Pulse Resp BP Pulse Ox 08/14/19 07:42 97.9 F 70 20 106/55 L 96 08/14/19 07:35 95 08/14/19 07:18 95 08/14/19 03:08 98.3 F 71 16 110/58 L 95 Weight Admit Weight 133 lb 2.56 oz Weight 140 lb 8 oz Most Recent Monitor Data Heart Rate from ECG 70 NIBP 104/51 NIBP BP-Mean 68 Respiration from ECG 13 SpO2 100 I&O: 08/13/19 08/14/19 08/15/19 06:59 06:59 06:59 Intake Total 925 1820 Output Total 2 Balance 923 1820 Result Diagrams: 08/14/19 04:39 08/14/19 04:39 Hospitalist ROS - Medication Medications: Active Medications Generic Name Dose Route Start Last Admin Trade Name Freq PRN Reason Stop Dose Admin Acetaminophen 650 mg 08/08/19 15:19 08/09/19 16:11 Tylenol PO 650 mg Q4H PRN Administration Headache/Fever/Mild Pain (1-3) Aspirin 81 mg 08/09/19 09:00 08/14/19 09:14 Aspirin Chewable PO 81 mg DAILY ZACHARY Administration Fludrocortisone Acetate 0.1 mg 08/11/19 09:00 08/14/19 09:14 Florinef PO 0.1 mg DAILY ZACHARY Administration Dobutamine HCl/Dextrose 250 mls @ 4.725 mls/hr 08/08/19 17:45 08/10/19 00:53 Dobutamine 500 Mg/250 Ml IVPB 250 mls INF ZACHARY Administration Protocol 2.5 MCG/KG/MIN Norepinephrine Bitartrate 250 mls @ 0 mls/hr 08/09/19 04:14 08/11/19 02:11 Levophed IVPB 250 mls INF PRN Administration TO KEEP MAP > 65 Protocol Titrate Ceftriaxone Sodium 1 gm/ 100 mls @ 200 mls/hr 08/09/19 11:30 08/14/19 12:29 Sodium Chloride IVPB 100 mls Q24HR ZACHARY Administration Lorazepam 0.5 mg 08/10/19 09:46 08/10/19 21:18 Ativan SLOW IVP 0.5 mg Q6H PRN Administration Anxiety/Agitation Miscellaneous Medication 0 gm 08/08/19 21:07 08/10/19 04:50 Preparation H Ointment TOP 1 applic ASDIR PRN Administration Hemorrhoids Pantoprazole Sodium 40 mg 08/09/19 09:00 08/14/19 09:14 Protonix PO 40 mg DAILY ZACHARY Administration Prednisone 20 mg 08/11/19 08:00 08/14/19 09:14 Prednisone PO 20 mg QAM-WM ZACHARY Administration Senna/Docusate Sodium 2 tab 08/08/19 15:19 08/12/19 08:06 Senokot S PO 2 tab BIDPRN PRN Administration Constipation Sodium Chloride 10 ml 08/09/19 09:00 08/14/19 09:14 Flush - Normal Saline IVF 10 ml Q12HR ZACHARY Administration - Exam General Appearance: ill appearing Neck: supple, no JVD Heart: RRR Respiratory - other findings: Deminished breath sounds on the right Gastrointestinal: soft, non-tender Extremities: no cyanosis Neurological: cranial nerve grossly intact, no focal deficits Hosp A/P (1) Acute exacerbation of CHF (congestive heart failure) Code(s): I50.9 - HEART FAILURE, UNSPECIFIED Status: Acute Qualifiers: Heart failure type: diastolic Qualified Code(s): I50.33 - Acute on chronic diastolic (congestive) heart failure (2) ASH (acute kidney injury) Code(s): N17.9 - ACUTE KIDNEY FAILURE, UNSPECIFIED Status: Acute (3) Cardiogenic shock Code(s): R57.0 - CARDIOGENIC SHOCK Status: Acute (4) Recurrent right pleural effusion Code(s): J90 - PLEURAL EFFUSION, NOT ELSEWHERE CLASSIFIED Status: Acute (5) CAD (coronary artery disease) Code(s): I25.10 - ATHSCL HEART DISEASE OF [place] CORONARY ARTERY W/O ANG PCTRS Status: Chronic Qualifiers: Coronary Disease-Associated Artery/Lesion type: bypass graft [place] vs. transplanted heart: [place] heart Associated angina: without angina Qualified Code(s): I25.810 - Atherosclerosis of coronary artery bypass graft(s) without angina pectoris (6) Dyslipidemia Code(s): E78.5 - HYPERLIPIDEMIA, UNSPECIFIED Status: Chronic - Plan 08/10: Cardiogenic shock resolved with dobutamine drip been discontinued overnight and norepinephrine drip being held earlier in the morning. The patient has no new complaints. Her creatinine level is back to baseline. Status post thoracentesis yesterday with fluid analysis revealing transudative effusion. Chest x-ray this morning showing some worsening of the hydropneumothorax. Pulmonary service were notified. 08/11: Patient is clinically stable. Lasix being placed on hold. Cleared for transfer to medical floor. 08/12: Remains stable. Restart lasix per cardiology. No indication to repeat thoracentesis. PT and OT evaluation Case management consult to assist with DC planning 08/13: CT showing lung collapse and worse pneumothorax. Nursing staff notifying pulmonology service with the CT results.
--- NOTE | 2019-08-14 17:04 | PRG ---
DATE OF SERVICE: SUBJECTIVE: Ms. Daniels is resting comfortably. She is very hard of hearing, but she does not indicate any chest pain or pressure. Her family members indicate she is doing okay. OBJECTIVE: VITAL SIGNS: Blood pressure 106/57, pulse 70. LUNGS: Clear anterolaterally. CARDIAC: Normal S1, normal S2. ABDOMEN: Soft and nontender. ASSESSMENT: 1. Congestive heart failure, diastolic, appears still mildly volume overloaded. 2. Hypotension, resolved. 3. Renal failure stage 3. Creatinine 1.66, stable. PLAN: 1. Stop fludrocortisone. 2. Start low-dose diuretic furosemide 20 mg a day starting tomorrow. 3. She is off the dobutamine and she is off the norepinephrine. Job ID: [id number]
--- NOTE | 2019-08-14 17:15 | PRG ---
DATE OF SERVICE: 08/14/2019 SERVICE: Pulmonary Medicine. INTERVAL HISTORY: The patient is doing poorly from a mentation standpoint. She is little bit more somnolent today. Her blood pressures were marginal. She is not tolerating diuresis very well. Otherwise, there has been no interval change to her condition. PHYSICAL EXAMINATION: VITAL SIGNS: Afebrile, pulse 70, blood pressure 106/57, respirations 20, and saturation 95% on 2 L nasal cannula. GENERAL: The patient is awake and alert, in no apparent distress. LUNGS: Poor air entry on the right and left dependently. Anteriorly, she has some crackling. HEART: Normal rate. Regular. ABDOMEN: Soft. Nontender. Distended. Bowel sounds are present. MUSCULOSKELETAL: No cyanosis or clubbing. There is diffuse pitting throughout. NEUROLOGIC: Grossly nonfocal. LABORATORY DATA: WBC 7.5, hemoglobin 9.2, platelets 82,000 and roughly stable. Neutrophils are 76% on top of 2% bands. Lymphocytes are 8%, monocytes are 14. Creatinine 1.66 and uptrending. BUN 42. Basic metabolic profile is otherwise unremarkable. Fluid is very clearly a transudate. Body fluid culture, urine culture, blood cultures x2, AFB smear and culture all unremarkable. IMAGING STUDIES: CT of the chest demonstrates a completely atelectatic right lung with very little aeration. I do not see much in the way of a pneumonia or consolidated lesion. I did this to look for essential airway lesion. This is not present, although the density of the atelectatic lung prevents accurate evaluation. She has a hydropneumothorax, but the hydro portion is going back up with water. She also has a moderate-sized left-sided pleural effusion. The heart is dilated, left atrium is dilated, inferior vena cava is dilated. The left atrium is enlarged. There is also some ascites present. ASSESSMENT: 1. Acute hypoxic respiratory failure. 2. Pleural effusions. 3. Acute on chronic diastolic heart failure. 4. Chronic kidney disease, stage 3. 5. Pulmonary hypertension, secondary to left heart disease. DISCUSSION AND PLAN: At this point, if we cannot optimize the heart moving forward, the patient is unlikely to make any significant lasting recovery from this. As such, we will put in a Palliative Care consultation to discuss goals of care in light of her advancing cognitive impairment and severe, increasing debility. Frankly, I do not see any need for antibiotics directed at lung issues. Steroids will be interrupted, if she does not have COPD exacerbation. At this point, she has no further requirements for inpatient Pulmonary Critical Care opinion, and I will sign off. Repeat thoracentesis could be considered, particularly on the left. The right lung I suspect is trapped and no additional interventions on that side should be performed. Job ID: [id number] MTDD
[2019-08-15] MEDS: Benzonatate 100 MG CAP PO PRN (02:34)
[2019-08-15 04:35] LABS: Anion Gap 13 mmol/L (10-20); BUN (Urea Nitrogen) 47 mg/dL (9.8-20.1); Calc. Creatinine Clearance 27 mL/min (70-130); Calcium 8.6 mg/dL (7.8-10.44); Carbon Dioxide 29 mmol/L (23-31); Chloride 104 mmol/L (98-107); Estimated GFR-MDRD 35; Glucose 169 mg/dL (83-110); Potassium 4.6 mmol/L (3.5-5.1); Sodium 141 mmol/L (136-145)
[2019-08-15 04:49] LABS: Hemoglobin 9.8 g/dL (12.0-16.0); Lymphocytes 9 % (21-51); MDiff Complete? YES; Macrocytosis SLIGHT = 6-15 cells (100X) (0-5/hpf); Mean Corpuscular HGB CONC 31.3 g/dL (32.0-36.0); Mean Platelet Volume 9.3 fL (7.4-10.4); Monocytes 14 % (0-10); Neutrophil 77 % (42-75); Platelet Count 100 thou/uL (130-400); Platelet Morphology Comment Appears Decreased; RBC Distribution Width 15.2 % (11.5-14.5); Red Blood Cell (RBC) Count 2.97 mill/uL (4.20-5.40); White Blood Cell (WBC) Count 8.6 thou/uL (4.8-10.8)
[2019-08-15 05:42] LABS: Actual Bicarbonate (HCO3a) 28.1 mEq/L (22-28); Base Excess (BEa) -2.7 mEq/L (-2.0 to +3.0); Calcium, Ionized 1.19 mmol/L (1.12-1.30); Carboxyhemoglobin (COHb) 0.7 gm% (0.0-3.0); Hemoglobin (Hb) 10.6 g/dL (12.0-16.0); O2 Tension (PaO2) 128.5 mmHg (> 70.0); Potassium - ABG Lab 4.52 mmol/L (3.70-5.30)
[2019-08-15 05:45] LABS: pH, Arterial 7.12 (7.35-7.45)
[2019-08-15 05:46] LABS: ALV-art Gradient 75.095 (0-20); CO2 Tension 88.1 mmHg (35.0-45.0); Puncture Site LBR
[2019-08-15] MEDS ORDERED: Furosemide 40 MG/4 ML VIAL SLOW IVP SCH (06:00)
[2019-08-15] MEDS: DOBUTamine 500 mg/250 ml 250 ML IVPB SCH (08:30)
[2019-08-15] MEDS ORDERED: Furosemide 20 MG TAB PO SCH (09:00)
--- NOTE | 2019-08-15 09:44 | RAD ---
CHEST 1 VIEW: HISTORY: Shortness of breath. COMPARISON: CT prior day. FINDINGS: Similar appearance to large right hydropneumothorax. Large left pleural effusion. Prior transcathet er aortic valve replacement. Cardiac device is similar. Near-complete collapse of the right lung. IMPRESSION: Similar examination of the chest. POS: CET
[2019-08-15] MEDS ORDERED: Furosemide 20 MG/2 ML VIAL SLOW IVP SCH (12:00)
[2019-08-15] MEDS ORDERED: Furosemide 100 MG in Sodium Chloride 0.9% 100 ML IVPB SCH (12:00)
--- NOTE | 2019-08-15 12:09 | RAD ---
XR Chest 1 View Portable HISTORY: Follow-up of hydropneumothorax. COMPARISON: Chest x-ray done earlier today and CT examination done 08/14/2019. FINDINGS: The right lung appears more opacified but this is probably just related to the supine techn ique of this film. There is lucency over the right chest which is felt to represent the persistent pneumothorax. The right lung is a collapsed. There is left lower lobe atelectasis with effusion. Ques tionable reduction in the left effusion again this is most likely related to technique.. IMPRESSION: Right-sided hydropneumothorax although different in appearance since the prior examinatio n this is felt to be related to the supine technique no definitive interval change.
[2019-08-15] MEDS ORDERED: Heparin 5,000 UNITS/ML VIAL SC SCH (12:15)
--- NOTE | 2019-08-15 12:32 | PRG ---
DATE OF SERVICE: 08/15/2019 INTERVAL HISTORY: The patient is doing poorly overnight from respiratory standpoint. She started becoming increasingly obtunded. An ABG was performed demonstrating hypercapnic failure as well as severe hypoxemia. She was brought to the ICU and placed on BiPAP. She woke up appropriately. That being said, her blood pressures remain marginal, she is not responding well to Lasix. PHYSICAL EXAMINATION: VITAL SIGNS: Afebrile, pulse 70, blood pressure 95/52, respirations 15, saturation 100%, currently on 27% FiO2 delivered via BiPAP. HEENT: Normocephalic and atraumatic. Sclerae white. Conjunctivae pink. Oral mucosa is moist without lesions. LUNGS: Decreased air entry bibasilarly, worse on the right. Crackles are present anteriorly. HEART: Normal rate. Regular. ABDOMEN: Soft, nontender, nondistended. Bowel sounds are positive. MUSCULOSKELETAL: No cyanosis or clubbing. There is diffuse pitting throughout. NEUROLOGIC: Grossly nonfocal. LABORATORY DATA: WBC 8.6, hemoglobin 9.8 and gently uptrending, platelets 100,000, have improved. Neutrophils are 77%, monocytes, and lymphocytes are roughly stable. INR 2.3. PH 7.12, pCO2 88, PO2 128 when she was wearing a Ventimask with 44% oxygen. Creatinine is uptrending to 1.72. Basic metabolic profile is otherwise unremarkable. Glucose 171. Urinalysis is unremarkable. Previous pleural fluid was a clear transudate. Blood cultures x2, urine culture, body fluid culture, and sputum culture all negative to date. The sputum had few white blood cells, but many gram-positive cocci in pairs, and a few budding yeast. IMAGING DATA: Chest x-ray demonstrates bilateral pleural effusions. There is no significant shift in the mediastinum on this AP film. That would suggest any degree of tension. Pneumonia cannot be excluded. ASSESSMENT: 1. Acute hypoxic respiratory failure. 2. [place] diastolic heart failure. 3. Pulmonary hypertension, secondary to left heart disease. 4. Chronic kidney disease, stage 3. 5. Community-acquired pneumonia, possible in the basis of significant gram-positive cocci in pairs in the sputum. DISCUSSION AND PLAN: We will give her a 7-day course of antibiotic and antifungal coverage. That being said, I do believe that the primary contract driver of her presentation is her advanced heart failure. The dobutamine has been initiated. We will continue to diurese the patient through time as tolerated. Pulmonary/Critical Care will continue to follow along in this location. Palliative Care consultation has been placed as I do believe this patient may be appropriate for hospice moving forward. Job ID: [id number]
[2019-08-15] MEDS ORDERED: Fluconazole In NaCl,Iso-Osm 200 MG in Premix Bag 1 BAG IVPB SCH (13:00)
[2019-08-15] MEDS: Aspirin Chewable 81 MG TAB PO SCH (13:18)
[2019-08-15] MEDS: Furosemide 100 MG in Sodium Chloride 0.9% 90 ML IVPB SCH (13:19)
[2019-08-15] MEDS: Hydrocortisone Sod Succ/PF 100 mg/2 ml Vial IVP SCH ×2 (13:25→17:42)
[2019-08-15] MEDS: Piperacillin/Tazobactam 2.25 GM in Sodium Chloride 0.9% 100 ML IVPB SCH ×2 (13:34→17:42)
[2019-08-15] MEDS: cefTRIAXone\\ROCEPHIN 1 GM in Sodium Chloride 0.9% 100 ML IVPB SCH (13:47)
--- NOTE | 2019-08-15 14:49 | PRG ---
DATE OF SERVICE: 08/15/2019 SUBJECTIVE: Ms. Daniels had worsened clinically and had to be moved to the intensive care unit. She is currently on CPAP, intravenous dobutamine, and an intravenous Lasix drip. The patient continues to worsen with low oxygen saturation. She is not responsive. OBJECTIVE: LUNGS: Clear in the left side anteriorly. On the right side, she has a very large effusion and decreased breath sounds. CARDIAC: No new murmur, rub, or gallop. ABDOMEN: Soft and nontender. EXTREMITIES: There is mild edema. ASSESSMENT: 1. Congestive heart failure, systolic and diastolic mixed, not responding to usual therapy. 2. Previous biventricular pacemaker. 3. Pleural effusion. PLAN: She is on intravenous Lasix and dobutamine. Prognosis is poor. Current status is do not attempt resuscitation. The family is aware. Job ID: [id number]
--- NOTE | 2019-08-15 15:47 | PDOC.HOSPP ---
- Subjective Encounter Date: 08/15/19 Subjective: The patient's respiratory status deteriorated overnight. She was moved to ICU and started on Bipap - Objective Vital Signs & Weight: Vital Signs (12 hours) Temp Pulse Pulse Resp BP Pulse Ox Pulse Ox 08/15/19 13:00 96.1 F L 08/15/19 12:00 95.6 F L 08/15/19 10:21 70 08/15/19 08:00 96.3 F L 08/15/19 06:08 100 08/15/19 06:00 96.3 F L 08/15/19 05:22 98 08/15/19 05:15 70 36 H 117/60 94 L Weight Admit Weight 133 lb 2.547 oz Weight 145 lb 4.554 oz Most Recent Monitor Data Heart Rate from ECG 70 NIBP 112/64 NIBP BP-Mean 80 Respiration from ECG 19 SpO2 100 I&O: 08/14/19 08/15/19 08/16/19 06:59 06:59 06:59 Intake Total 1820 480 200 Output Total 450 Balance 1820 480 -250 Result Diagrams: 08/15/19 03:53 08/15/19 03:53 Additional Labs: Accuchecks 08/15/19 05:16 POC Glucose 171 H Hospitalist ROS - Medication Medications: Active Medications Generic Name Dose Route Start Last Admin Trade Name Freq PRN Reason Stop Dose Admin Acetaminophen 650 mg 08/08/19 15:19 08/09/19 16:11 Tylenol PO 650 mg Q4H PRN Administration Headache/Fever/Mild Pain (1-3) Albuterol/Ipratropium 3 ml 08/13/19 17:22 08/15/19 05:22 Duoneb NEB 3 ml Q6H PRN Administration SOB &/or Wheezing Aspirin 81 mg 08/09/19 09:00 08/15/19 13:18 Aspirin Chewable PO Not Given DAILY ZACHARY Benzonatate 100 mg 08/15/19 02:21 08/15/19 02:34 Tessalon PO 100 mg TIDPRN PRN Administration Cough Hydrocortisone Sodium Succinate 50 mg 08/15/19 12:00 08/15/19 13:25 Solu-Cortef IVP 50 mg Q6HR ZACHARY Administration Dobutamine HCl/Dextrose 250 mls @ 0 mls/hr 08/15/19 08:15 08/15/19 08:30 Dobutamine 500 Mg/250 Ml IVPB 250 mls INF ZACHARY Administration Piperacillin Sod/Tazobactam 100 mls @ 200 mls/hr 08/15/19 12:00 08/15/19 13: 34 Sod 2.25 gm/ Sodium Chloride IVPB 100 mls Q6HR ZACHARY Administration Furosemide 100 mg/ Sodium 100 mls @ 5 mls/hr 08/15/19 13:00 08/15/19 13:19 Chloride IVPB 100 mls INF ZACHARY Administration 5 MG/HR Lorazepam 0.5 mg 08/10/19 09:46 08/10/19 21:18 Ativan SLOW IVP 0.5 mg Q6H PRN Administration Anxiety/Agitation Miscellaneous Medication 0 gm 08/08/19 21:07 08/10/19 04:50 Preparation H Ointment TOP 1 applic ASDIR PRN Administration Hemorrhoids Pantoprazole Sodium 40 mg 08/09/19 09:00 08/15/19 13:19 Protonix PO Not Given DAILY ZACHARY Senna/Docusate Sodium 2 tab 08/08/19 15:19 08/12/19 08:06 Senokot S PO 2 tab BIDPRN PRN Administration Constipation Sodium Chloride 10 ml 08/09/19 09:00 08/15/19 10:10 Flush - Normal Saline IVF 10 ml Q12HR ZACHARY Administration - Exam General Appearance: ill appearing ENT: normocephalic atraumatic Neck: supple Heart: RRR Respiratory: rales, rhonchi, tachypneic Gastrointestinal: soft, non-tender, non-distended, normal bowel sounds Hosp A/P (1) Acute exacerbation of CHF (congestive heart failure) Code(s): I50.9 - HEART FAILURE, UNSPECIFIED Status: Acute Qualifiers: Heart failure type: diastolic Qualified Code(s): I50.33 - Acute on chronic diastolic (congestive) heart failure (2) ASH (acute kidney injury) Code(s): N17.9 - ACUTE KIDNEY FAILURE, UNSPECIFIED Status: Acute (3) Cardiogenic shock Code(s): R57.0 - CARDIOGENIC SHOCK Status: Acute (4) Recurrent right pleural effusion Code(s): J90 - PLEURAL EFFUSION, NOT ELSEWHERE CLASSIFIED Status: Acute (5) CAD (coronary artery disease) Code(s): I25.10 - ATHSCL HEART DISEASE OF [place] CORONARY ARTERY W/O ANG PCTRS Status: Chronic Qualifiers: Coronary Disease-Associated Artery/Lesion type: bypass graft [place] vs. transplanted heart: [place] heart Associated angina: without angina Qualified Code(s): I25.810 - Atherosclerosis of coronary artery bypass graft(s) without angina pectoris (6) Dyslipidemia Code(s): E78.5 - HYPERLIPIDEMIA, UNSPECIFIED Status: Chronic - Plan 08/10: Cardiogenic shock resolved with dobutamine drip been discontinued overnight and norepinephrine drip being held earlier in the morning. The patient has no new complaints. Her creatinine level is back to baseline. Status post thoracentesis yesterday with fluid analysis revealing transudative effusion. Chest x-ray this morning showing some worsening of the hydropneumothorax. Pulmonary service were notified. 08/11: Patient is clinically stable. Lasix being placed on hold. Cleared for transfer to medical floor. 08/12: Remains stable. Restart lasix per cardiology. No indication to repeat thoracentesis. PT and OT evaluation Case management consult to assist with DC planning 08/13: CT showing lung collapse and worse pneumothorax. Nursing staff notifying pulmonology service with the CT results. 08/14: Respiratory failure with hypoxia due to worsening CHF On BiPAP, Furosemide and dobutamine drips
[2019-08-15] MEDS: Heparin 5,000 UNITS/ML VIAL SC SCH (20:07)
[2019-08-16] MEDS: Piperacillin/Tazobactam 2.25 GM in Sodium Chloride 0.9% 100 ML IVPB SCH ×5 (00:01→23:02)
[2019-08-16] MEDS: Hydrocortisone Sod Succ/PF 100 mg/2 ml Vial IVP SCH ×5 (00:01→23:03)
[2019-08-16 04:11] LABS: Phosphorus 4.4 mg/dL (2.3-4.7)
[2019-08-16 04:13] LABS: Anion Gap 18 mmol/L (10-20); BUN (Urea Nitrogen) 47 mg/dL (9.8-20.1); Calc. Creatinine Clearance 29 mL/min (70-130); Calcium 8.2 mg/dL (7.8-10.44); Carbon Dioxide 22 mmol/L (23-31); Chloride 106 mmol/L (98-107); Estimated GFR-MDRD 36; Glucose 214 mg/dL (83-110); Magnesium 2.4 mg/dL (1.6-2.6); Potassium 4.1 mmol/L (3.5-5.1); Sodium 142 mmol/L (136-145)
[2019-08-16 04:38] LABS: Band 2 % (5-11); Hemoglobin 9.2 g/dL (12.0-16.0); Lymphocytes 4 % (21-51); MDiff Complete? YES; Macrocytosis SLIGHT = 6-15 cells (100X) (0-5/hpf); Mean Corpuscular HGB CONC 31.5 g/dL (32.0-36.0); Mean Corpuscular Hemoglobin 32.7 pg (27.0-31.0); Mean Platelet Volume 9.7 fL (7.4-10.4); Monocytes 3 % (0-10); Neutrophil 91 % (42-75); Platelet Count 72 thou/uL (130-400); Platelet Morphology Comment Appears Decreased; Red Blood Cell (RBC) Count 2.82 mill/uL (4.20-5.40); White Blood Cell (WBC) Count 6.4 thou/uL (4.8-10.8)
[2019-08-16] MEDS: Furosemide 100 MG in Sodium Chloride 0.9% 90 ML IVPB SCH (06:45)
[2019-08-16] MEDS: Fluconazole In NaCl,Iso-Osm 100 MG in Admixture Fee 2 EACH IVPB SCH (08:01)
[2019-08-16] MEDS: DOBUTamine 500 mg/250 ml 250 ML IVPB SCH (08:12)
--- NOTE | 2019-08-16 09:17 | PDOC.CPN ---
- Subjective Date: 08/16/19 Time: 12:48 Interval history: Pt states she is feeling better. No current complaints. Breathing better. - Objective Allergies/Adverse Reactions: Allergies Allergy/AdvReac Type Severity Reaction Status Date / Time No Known Allergies Allergy Verified 08/08/19 18:09 Visit Medications: Current Medications Acetaminophen (Tylenol) 650 mg PO Q4H PRN PRN Reason: Headache/Fever/Mild Pain (1-3) Last Admin: 08/09/19 16:11 Dose: 650 mg Albuterol/Ipratropium (Duoneb) 3 ml NEB Q6H PRN PRN Reason: SOB &/or Wheezing Last Admin: 08/15/19 05:22 Dose: 3 ml Aspirin (Aspirin Chewable) 81 mg PO DAILY [facility] Last Admin: 08/15/19 13:18 Dose: Not Given Benzonatate (Tessalon) 100 mg PO TIDPRN PRN PRN Reason: Cough Last Admin: 08/15/19 02:34 Dose: 100 mg Bisacodyl (Dulcolax) 10 mg [place] DAILYPRN PRN PRN Reason: Constipation Heparin Sodium (Porcine) (Heparin) 5,000 units SC BID [facility] Last Admin: 08/15/19 20:07 Dose: 5,000 units Hydrocortisone Sodium Succinate (Solu-Cortef) 50 mg IVP Q6HR [facility] Last Admin: 08/16/19 05:33 Dose: 50 mg Dobutamine HCl/Dextrose (Dobutamine 500 Mg/250 Ml) 250 mls @ 0 mls/hr IVPB INF [facility] Last Admin: 08/16/19 08:12 Dose: 250 mls Piperacillin Sod/Tazobactam (Sod 2.25 gm/ Sodium Chloride) 100 mls @ 200 mls/ hr IVPB Q6HR [facility] Last Admin: 08/16/19 05:33 Dose: 100 mls Fluconazole/Sodium Chloride 100 mg/ Miscellaneous Medication 50 mls @ 100 mls/ hr IVPB DAILY [facility] Stop: 08/21/19 09:29 Last Admin: 08/16/19 08:01 Dose: 50 mls Furosemide 100 mg/ Sodium (Chloride) 100 mls @ 5 mls/hr IVPB INF [facility] Last Admin: 08/16/19 06:45 Dose: 100 mls Lorazepam (Ativan) 0.5 mg SLOW IVP Q6H PRN PRN Reason: Anxiety/Agitation Last Admin: 08/10/19 21:18 Dose: 0.5 mg Miscellaneous Medication (Preparation H Ointment) 0 gm TOP ASDIR PRN PRN Reason: Hemorrhoids Last Admin: 08/10/19 04:50 Dose: 1 applic Ondansetron HCl (Zofran) 4 mg IVP Q6H PRN PRN Reason: Nausea/Vomiting Pantoprazole Sodium (Protonix) 40 mg PO DAILY [facility] Last Admin: 08/15/19 13:19 Dose: Not Given Senna/Docusate Sodium (Senokot S) 2 tab PO BIDPRN PRN PRN Reason: Constipation Last Admin: 08/12/19 08:06 Dose: 2 tab Sodium Chloride (Flush - Normal Saline) 10 ml IVF Q12HR [facility] Last Admin: 08/15/19 20:31 Dose: Not Given Sodium Chloride (Flush - Normal Saline) 10 ml IVF PRN PRN PRN Reason: Saline Flush Vital Signs & Weight: Vital Signs Temp 08/16/19 07:00 97.5 F L 08/16/19 04:00 97.6 F 08/16/19 00:00 97.9 F Admit Weight 133 lb 2.547 oz Weight 143 lb 15.39 oz - Physical Exam General: appears well HEENT: normocephaly Neck: supple neck Cardiac: no murmur, regular rate, regular rhythm Lungs: decreased breath sounds Neuro: grossly intact Abdomen: unremarkable Skin: clear - Labs Result Diagrams: 08/16/19 03:32 08/16/19 03:32 Troponin/CKMB CK-MB (CK-2) 8.3 ng/mL (0-6.6) H* 08/08/19 10:48 Troponin I 0.167 ng/mL (< 0.028) H 08/08/19 10:48 - Assessment/Plan Assessment/Plan: Diasotlic CHF Pleural effusion, hydropneumothorax Biventricular pacer Renal insufficiency Anemia CV status stable No new recommendations Slowly improving Continue conservative treatment
[2019-08-16] MEDS: Aspirin Chewable 81 MG TAB PO SCH (10:56)
[2019-08-16] MEDS: Heparin 5,000 UNITS/ML VIAL SC SCH ×2 (14:36→19:47)
--- NOTE | 2019-08-16 15:34 | EKG ---
Test Reason : Blood Pressure : / mmHG Vent. Rate : 070 BPM Atrial Rate : 073 BPM P-R Int : 000 ms QRS Dur : 154 ms QT Int : 462 ms P-R-T Axes : 000 085 124 degrees QTc Int : 498 ms Ventricular-paced rhythm Abnormal ECG Confirmed by BERNARDINO SZYMANSKI M.D. ([id number]), assignment editor GEOFFREY MARIE ([id number]) on 08/16/2019 3:34:22 PM Referred By: Confirmed By:BERNARDINO SZYMANSKI M.D.
--- NOTE | 2019-08-16 15:40 | PDOC.HOSPP ---
- Subjective Encounter Date: 08/16/19 Subjective: Feels better Respiratory status improved - Objective Vital Signs & Weight: Vital Signs (12 hours) Temp Pulse Ox 08/16/19 11:00 97.6 F 08/16/19 08:00 96 08/16/19 07:00 97.5 F L 08/16/19 04:00 97.6 F Weight Admit Weight 133 lb 2.547 oz Weight 143 lb 15.39 oz Most Recent Monitor Data Heart Rate from ECG 70 NIBP 104/71 NIBP BP-Mean 82 Respiration from ECG 31 SpO2 100 I&O: 08/15/19 08/16/19 08/17/19 06:59 06:59 06:59 Intake Total 480 807.7 470 Output Total 852 338 Balance 480 -44.3 132 Result Diagrams: 08/16/19 03:32 08/16/19 03:32 Hospitalist ROS - Medication Medications: Active Medications Generic Name Dose Route Start Last Admin Trade Name Freq PRN Reason Stop Dose Admin Acetaminophen 650 mg 08/08/19 15:19 08/09/19 16:11 Tylenol PO 650 mg Q4H PRN Administration Headache/Fever/Mild Pain (1-3) Albuterol/Ipratropium 3 ml 08/13/19 17:22 08/15/19 05:22 Duoneb NEB 3 ml Q6H PRN Administration SOB &/or Wheezing Aspirin 81 mg 08/09/19 09:00 08/16/19 10:56 Aspirin Chewable PO 81 mg DAILY [facility] Administration Benzonatate 100 mg 08/15/19 02:21 08/15/19 02:34 Tessalon PO 100 mg TIDPRN PRN Administration Cough Heparin Sodium (Porcine) 5,000 units 08/15/19 21:00 08/16/19 14:36 Heparin SC 5,000 units BID [facility] Administration Hydrocortisone Sodium Succinate 50 mg 08/15/19 12:00 08/16/19 12:57 Solu-Cortef IVP 50 mg Q6HR [facility] Administration Dobutamine HCl/Dextrose 250 mls @ 0 mls/hr 08/15/19 08:15 08/16/19 08:12 Dobutamine 500 Mg/250 Ml IVPB 250 mls INF [facility] Administration Piperacillin Sod/Tazobactam 100 mls @ 200 mls/hr 08/15/19 12:00 08/16/19 12: 56 Sod 2.25 gm/ Sodium Chloride IVPB 100 mls Q6HR [facility] Administration Fluconazole/Sodium Chloride 50 mls @ 100 mls/hr 08/16/19 09:00 08/16/19 08:01 100 mg/ Miscellaneous IVPB 08/21/19 09:29 50 mls Medication DAILY [facility] Administration Furosemide 100 mg/ Sodium 100 mls @ 5 mls/hr 08/15/19 13:00 08/16/19 06:45 Chloride IVPB 100 mls INF [facility] Administration 5 MG/HR Lorazepam 0.5 mg 08/10/19 09:46 08/10/19 21:18 Ativan SLOW IVP 0.5 mg Q6H PRN Administration Anxiety/Agitation Miscellaneous Medication 0 gm 08/08/19 21:07 08/10/19 04:50 Preparation H Ointment TOP 1 applic ASDIR PRN Administration Hemorrhoids Pantoprazole Sodium 40 mg 08/09/19 09:00 08/16/19 10:56 Protonix PO 40 mg DAILY [facility] Administration Senna/Docusate Sodium 2 tab 08/08/19 15:19 08/12/19 08:06 Senokot S PO 2 tab BIDPRN PRN Administration Constipation Sodium Chloride 10 ml 08/09/19 09:00 08/16/19 10:58 Flush - Normal Saline IVF 10 ml Q12HR [facility] Administration - Exam General Appearance: NAD, awake alert Eye: anicteric sclera ENT: normocephalic atraumatic Neck: supple, symmetric Heart: RRR Respiratory: normal chest expansion, no tachypnea Extremities: no cyanosis, no clubbing Neurological: cranial nerve grossly intact, no weakness Psychiatric: normal affect, normal behavior Hosp A/P (1) Acute exacerbation of CHF (congestive heart failure) Code(s): I50.9 - HEART FAILURE, UNSPECIFIED Status: Acute Qualifiers: Heart failure type: diastolic Qualified Code(s): I50.33 - Acute on chronic diastolic (congestive) heart failure (2) ASH (acute kidney injury) Code(s): N17.9 - ACUTE KIDNEY FAILURE, UNSPECIFIED Status: Acute (3) Cardiogenic shock Code(s): R57.0 - CARDIOGENIC SHOCK Status: Acute (4) Recurrent right pleural effusion Code(s): J90 - PLEURAL EFFUSION, NOT ELSEWHERE CLASSIFIED Status: Acute (5) CAD (coronary artery disease) Code(s): I25.10 - ATHSCL HEART DISEASE OF [place] CORONARY ARTERY W/O ANG PCTRS Status: Chronic Qualifiers: Coronary Disease-Associated Artery/Lesion type: bypass graft [place] vs. transplanted heart: [place] heart Associated angina: without angina Qualified Code(s): I25.810 - Atherosclerosis of coronary artery bypass graft(s) without angina pectoris (6) Dyslipidemia Code(s): E78.5 - HYPERLIPIDEMIA, UNSPECIFIED Status: Chronic - Plan 08/10: Cardiogenic shock resolved with dobutamine drip been discontinued overnight and norepinephrine drip being held earlier in the morning. The patient has no new complaints. Her creatinine level is back to baseline. Status post thoracentesis yesterday with fluid analysis revealing transudative effusion. Chest x-ray this morning showing some worsening of the hydropneumothorax. Pulmonary service were notified. 08/11: Patient is clinically stable. Lasix being placed on hold. Cleared for transfer to medical floor. 08/12: Remains stable. Restart lasix per cardiology. No indication to repeat thoracentesis. PT and OT evaluation Case management consult to assist with DC planning 08/13: CT showing lung collapse and worse pneumothorax. Nursing staff notifying pulmonology service with the CT results. 08/14: Respiratory failure with hypoxia due to worsening CHF On BiPAP, Furosemide and dobutamine drips 08/15: Respiratory status better. Off Bipap UOP > 3L over the past 24h ON lasix and dobutamine drips
[2019-08-17] MEDS: Furosemide 100 MG in Sodium Chloride 0.9% 90 ML IVPB SCH (01:31)
[2019-08-17 04:30] LABS: Anion Gap 15 mmol/L (10-20); BUN (Urea Nitrogen) 47 mg/dL (9.8-20.1); Calc. Creatinine Clearance 25 mL/min (70-130); Calcium 8.3 mg/dL (7.8-10.44); Carbon Dioxide 29 mmol/L (23-31); Chloride 103 mmol/L (98-107); Estimated GFR-MDRD 31; Glucose 211 mg/dL (83-110); Magnesium 2.3 mg/dL (1.6-2.6); Phosphorus 4.6 mg/dL (2.3-4.7); Potassium 3.8 mmol/L (3.5-5.1); Sodium 143 mmol/L (136-145)
[2019-08-17 04:35] LABS: Band 2 % (5-11); Hemoglobin 8.8 g/dL (12.0-16.0); Lymphocytes 5 % (21-51); MDiff Complete? YES; Macrocytosis SLIGHT = 6-15 cells (100X) (0-5/hpf); Mean Corpuscular HGB CONC 31.6 g/dL (32.0-36.0); Mean Corpuscular Hemoglobin 33.1 pg (27.0-31.0); Mean Platelet Volume 9.8 fL (7.4-10.4); Monocytes 3 % (0-10); Neutrophil 90 % (42-75); Nucleated RBC 1 % (0); Platelet Count 78 thou/uL (130-400); Platelet Morphology Comment Appears Decreased; RBC Distribution Width 15.2 % (11.5-14.5); Red Blood Cell (RBC) Count 2.66 mill/uL (4.20-5.40); White Blood Cell (WBC) Count 6.1 thou/uL (4.8-10.8)
[2019-08-17] MEDS: Piperacillin/Tazobactam 2.25 GM in Sodium Chloride 0.9% 100 ML IVPB SCH ×2 (06:12→12:32)
[2019-08-17] MEDS: Hydrocortisone Sod Succ/PF 100 mg/2 ml Vial IVP SCH ×3 (06:12→18:37)
--- NOTE | 2019-08-17 07:56 | PDOC.CPN ---
- Subjective Date: 08/17/19 Time: 10:22 Interval history: Overall better - Objective Allergies/Adverse Reactions: Allergies Allergy/AdvReac Type Severity Reaction Status Date / Time No Known Allergies Allergy Verified 08/08/19 18:09 Visit Medications: Current Medications Acetaminophen (Tylenol) 650 mg PO Q4H PRN PRN Reason: Headache/Fever/Mild Pain (1-3) Last Admin: 08/09/19 16:11 Dose: 650 mg Albuterol/Ipratropium (Duoneb) 3 ml NEB Q6H PRN PRN Reason: SOB &/or Wheezing Last Admin: 08/15/19 05:22 Dose: 3 ml Aspirin (Aspirin Chewable) 81 mg PO DAILY [facility] Last Admin: 08/16/19 10:56 Dose: 81 mg Benzonatate (Tessalon) 100 mg PO TIDPRN PRN PRN Reason: Cough Last Admin: 08/15/19 02:34 Dose: 100 mg Bisacodyl (Dulcolax) 10 mg [place] DAILYPRN PRN PRN Reason: Constipation Heparin Sodium (Porcine) (Heparin) 5,000 units SC BID [facility] Last Admin: 08/16/19 19:47 Dose: 5,000 units Hydrocortisone Sodium Succinate (Solu-Cortef) 50 mg IVP Q6HR [facility] Last Admin: 08/17/19 06:12 Dose: 50 mg Dobutamine HCl/Dextrose (Dobutamine 500 Mg/250 Ml) 250 mls @ 0 mls/hr IVPB INF [facility] Last Admin: 08/16/19 08:12 Dose: 250 mls Piperacillin Sod/Tazobactam (Sod 2.25 gm/ Sodium Chloride) 100 mls @ 200 mls/ hr IVPB Q6HR [facility] Last Admin: 08/17/19 06:12 Dose: 100 mls Fluconazole/Sodium Chloride 100 mg/ Miscellaneous Medication 50 mls @ 100 mls/ hr IVPB DAILY [facility] Stop: 08/21/19 09:29 Last Admin: 08/16/19 08:01 Dose: 50 mls Furosemide 100 mg/ Sodium (Chloride) 100 mls @ 5 mls/hr IVPB INF [facility] Last Admin: 08/17/19 01:31 Dose: 100 mls Lorazepam (Ativan) 0.5 mg SLOW IVP Q6H PRN PRN Reason: Anxiety/Agitation Last Admin: 08/10/19 21:18 Dose: 0.5 mg Miscellaneous Medication (Preparation H Ointment) 0 gm TOP ASDIR PRN PRN Reason: Hemorrhoids Last Admin: 08/10/19 04:50 Dose: 1 applic Ondansetron HCl (Zofran) 4 mg IVP Q6H PRN PRN Reason: Nausea/Vomiting Pantoprazole Sodium (Protonix) 40 mg PO DAILY [facility] Last Admin: 08/16/19 10:56 Dose: 40 mg Senna/Docusate Sodium (Senokot S) 2 tab PO BIDPRN PRN PRN Reason: Constipation Last Admin: 08/12/19 08:06 Dose: 2 tab Sodium Chloride (Flush - Normal Saline) 10 ml IVF Q12HR [facility] Last Admin: 08/16/19 19:47 Dose: 10 ml Sodium Chloride (Flush - Normal Saline) 10 ml IVF PRN PRN PRN Reason: Saline Flush Vital Signs & Weight: Vital Signs Temp Pulse Ox 08/17/19 04:00 97.3 F L 08/17/19 00:00 97.6 F 08/16/19 20:00 97.7 F 100 Admit Weight 133 lb 2.547 oz Weight 147 lb 0.773 oz - Physical Exam General: appears well HEENT: normocephaly Neck: no masses, no bruit Cardiac: regular rate, regular rhythm Lungs: bibasilar rales Extremities: no edema - Labs Result Diagrams: 08/17/19 03:43 08/17/19 03:42 Troponin/CKMB CK-MB (CK-2) 8.3 ng/mL (0-6.6) H* 08/08/19 10:48 Troponin I 0.167 ng/mL (< 0.028) H 08/08/19 10:48 - Assessment/Plan Assessment/Plan: Diasotlic CHF Pleural effusion, hydropneumothorax Biventricular pacer Renal insufficiency Anemia 08/16 REC No changes Decrease dobutrez to 2.5mics Werner GALLAGHER dobutrexz in am CV stable 08/15 REC CV status stable No new recommendations Slowly improving Continue conservative treatment
[2019-08-17] MEDS: Aspirin Chewable 81 MG TAB PO SCH (09:45)
[2019-08-17] MEDS: Fluconazole In NaCl,Iso-Osm 100 MG in Admixture Fee 2 EACH IVPB SCH (09:46)
[2019-08-17] MEDS: Heparin 5,000 UNITS/ML VIAL SC SCH ×2 (09:50→20:20)
[2019-08-17] MEDS ORDERED: DOBUTamine 500 mg/250 ml 250 ML IVPB SCH (10:15)
--- NOTE | 2019-08-17 13:13 | ULT ---
Renal sonogram HISTORY: Renal insufficiency. FINDINGS: Right kidney measures up to 9.9 cm and the left 9.1 cm. No hydronephrosis. Exophytic cyst at the lateral cortex of the left kidney measures up to 3.7 cm x 2.4 cm x 2.8 cm great est diameters. No solid masses. Minimal free fluid within the right upper quadrant. Urinary bladder is decompressed by Boggs catheter. IMPRESSION: No evidence of urinary tract obstruction. Left renal cyst.
--- NOTE | 2019-08-17 14:34 | PRG ---
DATE OF SERVICE: 08/16/2019 SUBJECTIVE: Elizabeth Daniels has no complaints. She is lying at about 15 degrees in bed with no tachypnea. OBJECTIVE: VITAL SIGNS: Heart rate in the 70s, blood pressure 108/62, respiratory rate in the 20s. LUNGS: Clear. HEART: Regular rhythm. ABDOMEN: Soft. EXTREMITIES: Without edema. LABORATORY DATA: White count 6.1, hemoglobin 8.8, platelets 78,000, sodium 143, potassium 3.8, chloride 103, bicarb 29, BUN 47, and creatinine 1.91. A renal ultrasound was ordered today given her acute decline in renal function. There is no evidence of an obstruction. IMPRESSION: I met with the son and answered all of his questions. We will continue with dobutamine and Lasix as per Cardiology. Job ID: [id number] MTDD
--- NOTE | 2019-08-17 15:17 | CON ---
DATE OF CONSULTATION: REASON FOR CONSULTATION: Elevated creatinine. HISTORY OF PRESENT ILLNESS: This is a very pleasant 79-year-old female, who presented to the hospital on August 07 for congestive heart failure and cardiogenic shock with acute renal failure. The patient was hypoxia with a massive right pleural effusion. The patient had a creatinine of 1.8 on admission, which has 1.9 today, it was as low as 1.3 and then has progressively increased. The patient has congestive heart failure and is getting dobutamine as well as a Lasix drip. The patient was also started on stress dose steroids and is being receiving antibiotics as well. The patient continues to make urine. The urine output has been 1600 in the last shift. The patient removal of fluid. No prior creatinines have been available. PHYSICAL EXAMINATION: GENERAL: The patient is resting. VITAL SIGNS: Afebrile, pulse 75, breathing at 16, blood pressure 106/58. HEENT: Head normocephalic and atraumatic. Eyes intact, no ulcers. Nose intact, no ulcers. Ears intact, no ulcers. NECK: Supple. No JVD. CHEST: Symmetrical and clear. CARDIOVASCULAR: Shows S1 and S2, no rub, no murmur. GASTROINTESTINAL: Abdomen is soft, bowel sounds positive. EXTREMITIES: Show no edema or ulcers. SKIN: Shows no rash or petechiae. MUSCULOSKELETAL: Shows no joint swelling or stiffness. GENITOURINARY: Shows no Boggs or CVA tenderness. NEUROLOGIC: Motor intact. Cranial nerves intact. LABORATORY DATA: Reviewed. ASSESSMENT AND PLAN: 1. Acute kidney injury in the setting of chronic kidney disease. 2. Cardiorenal syndrome versus drug-induced interstitial nephritis. I would recommend changing the Zosyn to another antibiotics. Other contributing factors are low blood pressure. Anemia, stable. Medication based on GFR appropriate. No indication for dialysis at this time. Job ID: [id number]
--- NOTE | 2019-08-17 16:05 | PDOC.HOSPP ---
- Subjective Encounter Date: 08/17/19 Subjective: Appear to be weaker and more confused - Objective Vital Signs & Weight: Vital Signs (12 hours) Temp Pulse Pulse BP Pulse Ox Pulse Ox Pulse Ox 08/17/19 09:05 70 71 121/58 L 100 100 08/17/19 08:00 97.4 F L 100 Weight Admit Weight 133 lb 2.547 oz Weight 147 lb 0.773 oz Most Recent Monitor Data Heart Rate from ECG 79 NIBP 106/58 NIBP BP-Mean 74 Respiration from ECG 25 SpO2 98 I&O: 08/16/19 08/17/19 08/18/19 06:59 06:59 06:59 Intake Total 807.7 1151 Output Total 852 830 75 Balance -44.3 321 -75 Result Diagrams: 08/17/19 03:43 08/17/19 03:42 Hospitalist ROS - Medication Medications: Active Medications Generic Name Dose Route Start Last Admin Trade Name Freq PRN Reason Stop Dose Admin Acetaminophen 650 mg 08/08/19 15:19 08/09/19 16:11 Tylenol PO 650 mg Q4H PRN Administration Headache/Fever/Mild Pain (1-3) Albuterol/Ipratropium 3 ml 08/13/19 17:22 08/15/19 05:22 Duoneb NEB 3 ml Q6H PRN Administration SOB &/or Wheezing Aspirin 81 mg 08/09/19 09:00 08/17/19 09:45 Aspirin Chewable PO 81 mg DAILY [facility] Administration Benzonatate 100 mg 08/15/19 02:21 08/15/19 02:34 Tessalon PO 100 mg TIDPRN PRN Administration Cough Heparin Sodium (Porcine) 5,000 units 08/15/19 21:00 08/17/19 09:50 Heparin SC 5,000 units BID [facility] Administration Hydrocortisone Sodium Succinate 50 mg 08/15/19 12:00 08/17/19 12:31 Solu-Cortef IVP 50 mg Q6HR [facility] Administration Fluconazole/Sodium Chloride 50 mls @ 100 mls/hr 08/16/19 09:00 08/17/19 09:46 100 mg/ Miscellaneous IVPB 08/21/19 09:29 50 mls Medication DAILY [facility] Administration Furosemide 100 mg/ Sodium 100 mls @ 5 mls/hr 08/15/19 13:00 08/17/19 01:31 Chloride IVPB 100 mls INF [facility] Administration 5 MG/HR Dobutamine HCl/Dextrose 250 mls @ 5.003 mls/hr 08/17/19 10:15 08/17/19 10:30 Dobutamine 500 Mg/250 Ml IVPB 250 mls INF [facility] Administration 2.5 MCG/KG/MIN Lorazepam 0.5 mg 08/10/19 09:46 08/10/19 21:18 Ativan SLOW IVP 0.5 mg Q6H PRN Administration Anxiety/Agitation Miscellaneous Medication 0 gm 08/08/19 21:07 08/10/19 04:50 Preparation H Ointment TOP 1 applic ASDIR PRN Administration Hemorrhoids Pantoprazole Sodium 40 mg 08/09/19 09:00 08/17/19 09:45 Protonix PO 40 mg DAILY [facility] Administration Senna/Docusate Sodium 2 tab 08/08/19 15:19 08/12/19 08:06 Senokot S PO 2 tab BIDPRN PRN Administration Constipation Sodium Chloride 10 ml 08/09/19 09:00 08/17/19 09:39 Flush - Normal Saline IVF Not Given Q12HR [facility] - Exam General Appearance: NAD ENT: normocephalic atraumatic Neck: supple Heart: RRR, no murmur, no gallops, no rubs, normal peripheral pulses Respiratory: no wheezes, normal chest expansion, rhonchi Gastrointestinal: soft, non-tender, non-distended, normal bowel sounds Hosp A/P (1) Acute exacerbation of CHF (congestive heart failure) Code(s): I50.9 - HEART FAILURE, UNSPECIFIED Status: Acute Qualifiers: Heart failure type: diastolic Qualified Code(s): I50.33 - Acute on chronic diastolic (congestive) heart failure (2) ASH (acute kidney injury) Code(s): N17.9 - ACUTE KIDNEY FAILURE, UNSPECIFIED Status: Acute (3) Cardiogenic shock Code(s): R57.0 - CARDIOGENIC SHOCK Status: Acute (4) Recurrent right pleural effusion Code(s): J90 - PLEURAL EFFUSION, NOT ELSEWHERE CLASSIFIED Status: Acute (5) CAD (coronary artery disease) Code(s): I25.10 - ATHSCL HEART DISEASE OF [place] CORONARY ARTERY W/O ANG PCTRS Status: Chronic Qualifiers: Coronary Disease-Associated Artery/Lesion type: bypass graft [place] vs. transplanted heart: [place] heart Associated angina: without angina Qualified Code(s): I25.810 - Atherosclerosis of coronary artery bypass graft(s) without angina pectoris (6) Dyslipidemia Code(s): E78.5 - HYPERLIPIDEMIA, UNSPECIFIED Status: Chronic - Plan 08/10: Cardiogenic shock resolved with dobutamine drip been discontinued overnight and norepinephrine drip being held earlier in the morning. The patient has no new complaints. Her creatinine level is back to baseline. Status post thoracentesis yesterday with fluid analysis revealing transudative effusion. Chest x-ray this morning showing some worsening of the hydropneumothorax. Pulmonary service were notified. 08/11: Patient is clinically stable. Lasix being placed on hold. Cleared for transfer to medical floor. 08/12: Remains stable. Restart lasix per cardiology. No indication to repeat thoracentesis. PT and OT evaluation Case management consult to assist with DC planning 08/13: CT showing lung collapse and worse pneumothorax. Nursing staff notifying pulmonology service with the CT results. 08/14: Respiratory failure with hypoxia due to worsening CHF On BiPAP, Furosemide and dobutamine drips 08/15: Respiratory status better. Off Bipap UOP > 3L over the past 24h ON lasix and dobutamine drips 08/16: Dobutamine drip tapered Still on lasix drip Urine output is low Nephrology consulted Impression is cardiorenal syndrome vs interstitial nephritis Zosyn DCed No evidence of sepsis
[2019-08-18] MEDS: Hydrocortisone Sod Succ/PF 100 mg/2 ml Vial IVP SCH ×5 (00:13→23:53)
[2019-08-18] MEDS: Furosemide 100 MG in Sodium Chloride 0.9% 90 ML IVPB SCH (01:11)
[2019-08-18 04:32] LABS: Anion Gap 12 mmol/L (10-20); BUN (Urea Nitrogen) 51 mg/dL (9.8-20.1); Calc. Creatinine Clearance 22 mL/min (70-130); Calcium 8.3 mg/dL (7.8-10.44); Carbon Dioxide 31 mmol/L (23-31); Chloride 103 mmol/L (98-107); Estimated GFR-MDRD 26; Glucose 186 mg/dL (83-110); Magnesium 2.2 mg/dL (1.6-2.6); Potassium 3.7 mmol/L (3.5-5.1); Sodium 142 mmol/L (136-145)
[2019-08-18 04:39] LABS: Phosphorus 4.8 mg/dL (2.3-4.7)
[2019-08-18 04:45] LABS: Hemoglobin 8.1 g/dL (12.0-16.0); Mean Corpuscular HGB CONC 31.1 g/dL (32.0-36.0); Mean Corpuscular Hemoglobin 33.1 pg (27.0-31.0); Mean Platelet Volume 10.4 fL (7.4-10.4); Platelet Count 70 thou/uL (130-400); Red Blood Cell (RBC) Count 2.44 mill/uL (4.20-5.40); White Blood Cell (WBC) Count 6.6 thou/uL (4.8-10.8)
[2019-08-18 04:46] LABS: Band 1 % (5-11); Lymphocytes 3 % (21-51); MDiff Complete? YES; Macrocytosis SLIGHT = 6-15 cells (100X) (0-5/hpf); Monocytes 4 % (0-10); Neutrophil 92 % (42-75); Nucleated RBC 1 % (0); Platelet Morphology Comment Appears Decreased
--- NOTE | 2019-08-18 09:53 | PRG ---
DATE OF SERVICE: 08/16/2019 SUBJECTIVE: Elizabeth Daniels has no complaints. OBJECTIVE: VITAL SIGNS: Heart rate is 70s, blood pressure 105/70, respiratory rate is 22. LUNGS: Clear. HEART: Regular Rhythm. ABDOMEN: Soft. EXTREMITIES: Without edema. LABORATORY DATA: White count 6.4, hemoglobin 9.2, platelets 72,000. Sodium 142, potassium 4.1, chloride 106, bicarb 22, BUN 47, creatinine 1.65, down from 1.72, pH yesterday was 7.12, pCO2 was 88, p02 128. IMPRESSION: Respiratory failure associated with diastolic heart failure. PLAN: Continue supportive care. Job ID: [id number]
[2019-08-18] MEDS: Heparin 5,000 UNITS/ML VIAL SC SCH ×2 (09:54→20:58)
[2019-08-18] MEDS: Aspirin Chewable 81 MG TAB PO SCH (09:54)
[2019-08-18] MEDS: Fluconazole In NaCl,Iso-Osm 100 MG in Admixture Fee 2 EACH IVPB SCH (09:54)
--- NOTE | 2019-08-18 11:57 | PDOC.CPN ---
- Subjective Date: 08/18/19 Time: 11:54 Interval history: No new issues. Continues to to diurese slowly on IV lasix drip. - Review of Systems ROS unobtainable: due to mental status - Objective Allergies/Adverse Reactions: Allergies Allergy/AdvReac Type Severity Reaction Status Date / Time No Known Allergies Allergy Verified 08/08/19 18:09 Visit Medications: Current Medications Acetaminophen (Tylenol) 650 mg PO Q4H PRN PRN Reason: Headache/Fever/Mild Pain (1-3) Last Admin: 08/09/19 16:11 Dose: 650 mg Albuterol/Ipratropium (Duoneb) 3 ml NEB Q6H PRN PRN Reason: SOB &/or Wheezing Last Admin: 08/15/19 05:22 Dose: 3 ml Aspirin (Aspirin Chewable) 81 mg PO DAILY [facility] Last Admin: 08/18/19 09:54 Dose: 81 mg Benzonatate (Tessalon) 100 mg PO TIDPRN PRN PRN Reason: Cough Last Admin: 08/15/19 02:34 Dose: 100 mg Bisacodyl (Dulcolax) 10 mg [place] DAILYPRN PRN PRN Reason: Constipation Heparin Sodium (Porcine) (Heparin) 5,000 units SC BID [facility] Last Admin: 08/18/19 09:54 Dose: 5,000 units Hydrocortisone Sodium Succinate (Solu-Cortef) 50 mg IVP Q6HR [facility] Last Admin: 08/18/19 05:50 Dose: 50 mg Fluconazole/Sodium Chloride 100 mg/ Miscellaneous Medication 50 mls @ 100 mls/ hr IVPB DAILY [facility] Stop: 08/21/19 09:29 Last Admin: 08/18/19 09:54 Dose: 50 mls Furosemide 100 mg/ Sodium (Chloride) 100 mls @ 5 mls/hr IVPB INF [facility] Last Admin: 08/18/19 01:11 Dose: 100 mls Lorazepam (Ativan) 0.5 mg SLOW IVP Q6H PRN PRN Reason: Anxiety/Agitation Last Admin: 08/10/19 21:18 Dose: 0.5 mg Miscellaneous Medication (Preparation H Ointment) 0 gm TOP ASDIR PRN PRN Reason: Hemorrhoids Last Admin: 08/10/19 04:50 Dose: 1 applic Ondansetron HCl (Zofran) 4 mg IVP Q6H PRN PRN Reason: Nausea/Vomiting Pantoprazole Sodium (Protonix) 40 mg PO DAILY [facility] Last Admin: 08/18/19 09:54 Dose: 40 mg Senna/Docusate Sodium (Senokot S) 2 tab PO BIDPRN PRN PRN Reason: Constipation Last Admin: 08/12/19 08:06 Dose: 2 tab Sodium Chloride (Flush - Normal Saline) 10 ml IVF Q12HR [facility] Last Admin: 08/17/19 20:21 Dose: 10 ml Sodium Chloride (Flush - Normal Saline) 10 ml IVF PRN PRN PRN Reason: Saline Flush Vital Signs & Weight: Vital Signs Temp Pulse Pulse Pulse Resp BP BP 08/18/19 10:00 70 71 121/62 113/55 L 08/18/19 08:00 98.6 F 70 20 08/18/19 03:10 97.4 F L 70 18 BP Pulse Ox 08/18/19 10:00 08/18/19 08:00 101/55 L 100 08/18/19 03:10 99/52 L 100 Admit Weight 133 lb 2.547 oz Weight 146 lb 1.6 oz - Physical Exam General: no apparent distress HEENT: normocephaly Neck: supple neck Cardiac: regular rate and rhythm Lungs: clear to auscultation Neuro: no lateralizing findings Abdomen: active bowel sounds Extremities: 2+ LE edema Skin: clear Musculoskeletal: no pain - Labs Result Diagrams: 08/18/19 03:36 08/18/19 03:36 Troponin/CKMB CK-MB (CK-2) 8.3 ng/mL (0-6.6) H* 08/08/19 10:48 Troponin I 0.167 ng/mL (< 0.028) H 08/08/19 10:48 - Telemetry Sinus rhythms and dysrhythmias: sinus rhythm - Assessment/Plan Assessment/Plan: 1. Large right sided pleural effusion 2. [place]/pneumothorax right 3. Chronic diastolic heart failure., EF on echo today at 60% 4. Hypotension, improved. 5. 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 Pulmonary HTN RVSP 68 mmHg. PLAN: - On Lasix drip, creatinine increasing likely from cardiorenal. - She has RV dysfunction with normal LVEF. - Still volume up on right side but better as compared to admission, still has LE edema. Will start milrinone drip and will need transfer to ICU for this. - Start milrinone drip at 0.1875 then if tolerated after 1 hour increase to 0.2812 then after 1 hour increase to 0.375 - Critical Care Time Critical care time (mins): 30
[2019-08-18] MEDS ORDERED: Milrinone 20 MG in Sodium Chloride 0.9% 100 ML IVPB SCH (12:00)
[2019-08-18 13:14] VITALS: BMI 27.6
--- NOTE | 2019-08-18 14:54 | PDOC.HOSPP ---
- Subjective Encounter Date: 08/18/19 Subjective: The patient is less responsive today - Objective Vital Signs & Weight: Vital Signs (12 hours) Temp Pulse Pulse Pulse Resp BP BP 08/18/19 12:00 97.0 F L 71 16 08/18/19 10:00 70 71 121/62 113/55 L 08/18/19 08:00 98.6 F 70 20 08/18/19 03:10 97.4 F L 70 18 BP Pulse Ox 08/18/19 12:00 96/53 L 100 08/18/19 10:00 08/18/19 08:00 101/55 L 100 08/18/19 03:10 99/52 L 100 Weight Admit Weight 133 lb 2.547 oz Weight 146 lb 1.6 oz Most Recent Monitor Data Heart Rate from ECG 70 NIBP 112/54 NIBP BP-Mean 73 Respiration from ECG 16 SpO2 100 I&O: 08/17/19 08/18/19 08/19/19 06:59 06:59 06:59 Intake Total 1151 580.2 75.1 Output Total 830 341 125 Balance 321 239.2 -49.9 Result Diagrams: 08/18/19 03:36 08/18/19 03:36 Hospitalist ROS - Medication Medications: Active Medications Generic Name Dose Route Start Last Admin Trade Name Freq PRN Reason Stop Dose Admin Acetaminophen 650 mg 08/08/19 15:19 08/09/19 16:11 Tylenol PO 650 mg Q4H PRN Administration Headache/Fever/Mild Pain (1-3) Albuterol/Ipratropium 3 ml 08/13/19 17:22 08/15/19 05:22 Duoneb NEB 3 ml Q6H PRN Administration SOB &/or Wheezing Aspirin 81 mg 08/09/19 09:00 08/18/19 09:54 Aspirin Chewable PO 81 mg DAILY [facility] Administration Benzonatate 100 mg 08/15/19 02:21 08/15/19 02:34 Tessalon PO 100 mg TIDPRN PRN Administration Cough Heparin Sodium (Porcine) 5,000 units 08/15/19 21:00 08/18/19 09:54 Heparin SC 5,000 units BID [facility] Administration Hydrocortisone Sodium Succinate 50 mg 08/15/19 12:00 08/18/19 12:31 Solu-Cortef IVP 50 mg Q6HR [facility] Administration Fluconazole/Sodium Chloride 50 mls @ 100 mls/hr 08/16/19 09:00 08/18/19 09:54 100 mg/ Miscellaneous IVPB 08/21/19 09:29 50 mls Medication DAILY [facility] Administration Furosemide 100 mg/ Sodium 100 mls @ 5 mls/hr 08/15/19 13:00 08/18/19 01:11 Chloride IVPB 100 mls INF [facility] Administration 5 MG/HR Lorazepam 0.5 mg 08/10/19 09:46 08/10/19 21:18 Ativan SLOW IVP 0.5 mg Q6H PRN Administration Anxiety/Agitation Miscellaneous Medication 0 gm 08/08/19 21:07 08/10/19 04:50 Preparation H Ointment TOP 1 applic ASDIR PRN Administration Hemorrhoids Pantoprazole Sodium 40 mg 08/09/19 09:00 08/18/19 09:54 Protonix PO 40 mg DAILY [facility] Administration Senna/Docusate Sodium 2 tab 08/08/19 15:19 08/12/19 08:06 Senokot S PO 2 tab BIDPRN PRN Administration Constipation Sodium Chloride 10 ml 08/09/19 09:00 08/18/19 12:34 Flush - Normal Saline IVF 10 ml Q12HR [facility] Administration - Exam General Appearance: ill appearing Neck: supple Heart: RRR Respiratory: rhonchi, tachypneic Gastrointestinal: soft, non-tender, non-distended, normal bowel sounds Extremities: no cyanosis Hosp A/P (1) Acute exacerbation of CHF (congestive heart failure) Code(s): I50.9 - HEART FAILURE, UNSPECIFIED Status: Acute Qualifiers: Heart failure type: diastolic Qualified Code(s): I50.33 - Acute on chronic diastolic (congestive) heart failure (2) ASH (acute kidney injury) Code(s): N17.9 - ACUTE KIDNEY FAILURE, UNSPECIFIED Status: Acute (3) Cardiogenic shock Code(s): R57.0 - CARDIOGENIC SHOCK Status: Acute (4) Recurrent right pleural effusion Code(s): J90 - PLEURAL EFFUSION, NOT ELSEWHERE CLASSIFIED Status: Acute (5) CAD (coronary artery disease) Code(s): I25.10 - ATHSCL HEART DISEASE OF [place] CORONARY ARTERY W/O ANG PCTRS Status: Chronic Qualifiers: Coronary Disease-Associated Artery/Lesion type: bypass graft [place] vs. transplanted heart: [place] heart Associated angina: without angina Qualified Code(s): I25.810 - Atherosclerosis of coronary artery bypass graft(s) without angina pectoris (6) Dyslipidemia Code(s): E78.5 - HYPERLIPIDEMIA, UNSPECIFIED Status: Chronic - Plan 08/10: Cardiogenic shock resolved with dobutamine drip been discontinued overnight and norepinephrine drip being held earlier in the morning. The patient has no new complaints. Her creatinine level is back to baseline. Status post thoracentesis yesterday with fluid analysis revealing transudative effusion. Chest x-ray this morning showing some worsening of the hydropneumothorax. Pulmonary service were notified. 08/11: Patient is clinically stable. Lasix being placed on hold. Cleared for transfer to medical floor. 08/12: Remains stable. Restart lasix per cardiology. No indication to repeat thoracentesis. PT and OT evaluation Case management consult to assist with DC planning 08/13: CT showing lung collapse and worse pneumothorax. Nursing staff notifying pulmonology service with the CT results. 08/14: Respiratory failure with hypoxia due to worsening CHF On BiPAP, Furosemide and dobutamine drips 08/15: Respiratory status better. Off Bipap UOP > 3L over the past 24h ON lasix and dobutamine drips 08/16: Dobutamine drip tapered Still on lasix drip Urine output is low Nephrology consulted Impression is cardiorenal syndrome vs interstitial nephritis Zosyn DCed No evidence of sepsis 08/17: I had a discussion with the daughter about the patient's condition and prognosis. As of now the family would keep the code status as DNR Hospice consult.
--- NOTE | 2019-08-18 16:06 | PRG ---
DATE OF SERVICE: 08/18/2019 SERVICE: Pulmonary Medicine. INTERVAL HISTORY: The patient is doing fine from a respiratory standpoint. She is breathing okay. She is on 2 L nasal cannula. Saturations are fantastic. She has been diuresed aggressively over the weekend. With this, she developed a little bit of prerenal azotemia. Otherwise, there has been no interval change to her condition. Her hemoglobin counts are dropping ever so slightly. PHYSICAL EXAMINATION: VITAL SIGNS: Afebrile, pulse 70, blood pressure 101/55, respirations 20, saturation 100% on 2 L nasal cannula. GENERAL: The patient is awake and alert, in no apparent distress. LUNGS: Decent air entry. Crackles are present in the bibasilar region with decreased air entry in both lungs. HEART: Normal rate, regular. ABDOMEN: Soft, nontender, nondistended. Bowel sounds are positive. MUSCULOSKELETAL: No cyanosis or clubbing. There is 1+ pitting in bilateral lower extremities, which is improved. NEUROLOGIC: Grossly nonfocal. LABORATORY DATA: WBC 6.1, hemoglobin 8.1, platelets 70,000. Creatinine 2.18, BUN 51. Basic metabolic profile is otherwise unremarkable. IMAGING: Ultrasound of bilateral kidneys demonstrates no obstructive nephropathy. ASSESSMENT: 1. Acute hypoxic respiratory failure, improving. 2. Acute on chronic diastolic heart failure. 3. Hydropneumothorax ex vacuo of the right lung. 4. Simple pleural effusion of the left lung, bilaterally. 5. Pulmonary hypertension secondary to advanced left heart disease. 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 She has advanced heart failure with pulmonary hypertension secondary to heart disease, which is diastolic in nature. In the event that she has obstructive sleep apnea, she would not be a good candidate for noninvasive ventilation. The is suggesting that she would not tolerate a noninvasive ventilator too terribly well. As such, I think it would be most reasonable to transition over to comfort care in the outpatient setting on discharge from the hospital on this occasion. Either way, she has no further requirements for inpatient Pulmonary or Critical Care opinion. She has a very clear transudate on 2 separate occasions on the right. The right lung is likely trapped as it has been atelectatic for a very long period of time. The left effusion has never been tapped, but is likely also transudate given her generalized anasarca. I would not recommend additional procedures in her and hopefully we can keep fluid off her through time with a combination of fluid restriction, salt restriction, and diuretics. Please call with additional questions or concerns through time. Pulmonary will sign off. Job ID: [id number] MTDD
--- NOTE | 2019-08-18 18:51 | PRG ---
DATE OF SERVICE: 08/18/2019 SUBJECTIVE: The patient was seen and examined at bedside and overnight events noted. The patient denies any shortness of breath or chest pain or palpitation. No history of nausea or vomiting or diarrhea or fever or chills or cramps. OBJECTIVE: GENERAL: This is a well-built female, in no apparent distress. VITAL SIGNS: Temperature 97.4. Heart rate 78. Respiratory rate 16. Blood pressure 93/56. HEENT: Atraumatic, normocephalic. Oral mucosa is moist. NECK: Supple. CARDIOVASCULAR: S1, S2 heard. Rate and rhythm regular. RESPIRATORY: Clear to auscultation. GASTROINTESTINAL: Abdomen is soft. MUSCULOSKELETAL: No tenderness. No edema. DERMATOLOGIC: No skin rash. NEUROLOGIC: Alert and awake and oriented x3. No focal neurologic deficits. Moving all the extremities. PSYCHIATRIC: Mood and affect normal. LABORATORY DATA: Hemoglobin is 8.1. Potassium is 3.7, BUN is 51, creatinine is 2.1. ASSESSMENT AND PLAN: 1. Acute kidney injury, getting worse. 2. Chronic kidney disease, stage 4. 3. Cardiorenal syndrome. 4. Edema. 5. Severe cardiomyopathy, on dobutamine and inotropes. Monitor renal function closely. Prognosis seems to be poor. We will follow the case along with other specialists. Job ID: [id number]
[2019-08-18] MEDS: Acetaminophen 325 MG TAB PO PRN (20:59)
[2019-08-18] MEDS: Benzonatate 100 MG CAP PO PRN (20:59)
[2019-08-19 04:58] LABS: Phosphorus 5.3 mg/dL (2.3-4.7)
[2019-08-19 04:59] LABS: Anion Gap 13 mmol/L (10-20); BUN (Urea Nitrogen) 58 mg/dL (9.8-20.1); Calc. Creatinine Clearance 18 mL/min (70-130); Calcium 8.1 mg/dL (7.8-10.44); Carbon Dioxide 30 mmol/L (23-31); Chloride 103 mmol/L (98-107); Estimated GFR-MDRD 21; Glucose 226 mg/dL (83-110); Magnesium 2.4 mg/dL (1.6-2.6); Potassium 3.7 mmol/L (3.5-5.1); Sodium 142 mmol/L (136-145)
[2019-08-19 05:23] LABS: Anisocytosis SLIGHT = 6-15 cells (100X) (0-5/hpf); Band 5 % (5-11); Hemoglobin 8.9 g/dL (12.0-16.0); MDiff Complete? YES; Mean Corpuscular HGB CONC 30.6 g/dL (32.0-36.0); Mean Platelet Volume 9.3 fL (7.4-10.4); Monocytes 6 % (0-10); Myelocyte 1 % (0-0); Neutrophil 88 % (42-75); Nucleated RBC 3 % (0); Platelet Count 80 thou/uL (130-400); Platelet Morphology Comment Appears Decreased; RBC Distribution Width 15.1 % (11.5-14.5); Red Blood Cell (RBC) Count 2.71 mill/uL (4.20-5.40); White Blood Cell (WBC) Count 8.1 thou/uL (4.8-10.8)
[2019-08-19] MEDS: Hydrocortisone Sod Succ/PF 100 mg/2 ml Vial IVP SCH ×3 (05:31→18:14)
[2019-08-19] MEDS: Aspirin Chewable 81 MG TAB PO SCH (09:47)
[2019-08-19 11:30] VITALS: BP 95/66; TEMP 98.4
--- NOTE | 2019-08-19 13:40 | PRG ---
DATE OF SERVICE: 08/19/2019 SUBJECTIVE: Patient was seen and examined at bedside and overnight events noted. Patient denies any shortness of breath or chest pain or palpitation. No history of nausea or vomiting or diarrhea or fever or chills or cramps. OBJECTIVE: General: This is a well-built female, in no apparent distress. Vital Signs: Temperature 98.4. Heart Rate 70. Respiratory rate 19. Blood pressure 95/66. HEENT: Atraumatic, normocephalic. Oral mucosa is moist. Neck: Supple. Cardiovascular: S1, S2 heard. Rate and rhythm regular. Respiratory: Clear to auscultation. Gastrointestinal: Abdomen is soft. Musculoskeletal: No tenderness. No edema. Dermatologic: No skin rash. Neurologic: Alert and awake and oriented x3. No focal neurologic deficits. Moving all the extremities. Psychiatric: Mood and affect normal. LABORATORY DATA: Potassium is 3.7, BUN is 58, creatinine is 2.6. ASSESSMENT AND PLAN: 1. Acute kidney injury, getting worse. 2. Chronic kidney disease, stage 4. 3. Cardiorenal syndrome. Agree with holding Lasix. 4. Edema. 5. Severe cardiomyopathy. Prognosis guarded. Diuretics on hold. We will follow. Job ID: [id number]
--- NOTE | 2019-08-19 18:44 | PDOC.CPN ---
- Subjective Date: 08/19/19 Time: 18:42 Interval history: No new issues. She did not diurese with milrinone and her creatinine continues to rise. Family met with palliative/Hospice care and they decided to go this route. She is now hospice care. Granddaughter asked me how long she had to live and I answered with this being a very hard question to quantify. It could be a month it could be 6 months, difficult to tell. - Review of Systems ROS unobtainable: due to mental status - Objective Allergies/Adverse Reactions: Allergies Allergy/AdvReac Type Severity Reaction Status Date / Time No Known Allergies Allergy Verified 08/08/19 18:09 Visit Medications: Current Medications Acetaminophen (Tylenol) 650 mg PO Q4H PRN PRN Reason: Headache/Fever/Mild Pain (1-3) Last Admin: 08/18/19 20:59 Dose: 650 mg Albuterol/Ipratropium (Duoneb) 3 ml NEB Q6H PRN PRN Reason: SOB &/or Wheezing Last Admin: 08/15/19 05:22 Dose: 3 ml Aspirin (Aspirin Chewable) 81 mg PO DAILY [facility] Last Admin: 08/19/19 09:47 Dose: 81 mg Benzonatate (Tessalon) 100 mg PO TIDPRN PRN PRN Reason: Cough Last Admin: 08/18/19 20:59 Dose: 100 mg Bisacodyl (Dulcolax) 10 mg [place] DAILYPRN PRN PRN Reason: Constipation Hydrocortisone Sodium Succinate (Solu-Cortef) 50 mg IVP Q6HR [facility] Last Admin: 08/19/19 18:14 Dose: Not Given Lorazepam (Ativan) 0.5 mg SLOW IVP Q6H PRN PRN Reason: Anxiety/Agitation Last Admin: 08/10/19 21:18 Dose: 0.5 mg Miscellaneous Medication (Preparation H Ointment) 0 gm TOP ASDIR PRN PRN Reason: Hemorrhoids Last Admin: 08/10/19 04:50 Dose: 1 applic Ondansetron HCl (Zofran) 4 mg IVP Q6H PRN PRN Reason: Nausea/Vomiting Pantoprazole Sodium (Protonix) 40 mg PO DAILY [facility] Last Admin: 08/19/19 09:47 Dose: 40 mg Senna/Docusate Sodium (Senokot S) 2 tab PO BIDPRN PRN PRN Reason: Constipation Last Admin: 08/12/19 08:06 Dose: 2 tab Sodium Chloride (Flush - Normal Saline) 10 ml IVF Q12HR [facility] Last Admin: 08/19/19 09:47 Dose: 10 ml Sodium Chloride (Flush - Normal Saline) 10 ml IVF PRN PRN PRN Reason: Saline Flush Vital Signs & Weight: Vital Signs Temp Pulse Resp BP Pulse Ox 08/19/19 11:25 98.4 F 70 18 95/66 99 08/19/19 08:27 98.5 F 70 14 96/54 L 92 L Admit Weight 133 lb 2.547 oz Weight 149 lb 12.8 oz - Physical Exam General: no apparent distress HEENT: normocephaly Neck: supple neck Cardiac: regular rate and rhythm Lungs: absent breath sounds Neuro: motor function intact Abdomen: active bowel sounds Extremities: 2+ LE edema Skin: clear Musculoskeletal: normal range of motion - Labs Result Diagrams: 08/19/19 04:22 08/19/19 04:22 Troponin/CKMB CK-MB (CK-2) 8.3 ng/mL (0-6.6) H* 08/08/19 10:48 Troponin I 0.167 ng/mL (< 0.028) H 08/08/19 10:48 - Telemetry Sinus rhythms and dysrhythmias: sinus rhythm - Assessment/Plan Assessment/Plan: 1. Large right sided pleural effusion 2. [place]/pneumothorax right 3. Chronic diastolic heart failure Grade 3/3, LVEF on echo today at 60% 4. Hypotension, improved. 5. 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 Pulmonary HTN PLAN: - Per patients family she will go home with hospice. - Will sign off. Call with any questions.
--- NOTE | 2019-08-20 14:55 | DIS ---
DATE OF ADMISSION: 08/08/2019 DATE OF DISCHARGE: 08/19/2019 The patient has on 08/19/2019 at 1507. DISCHARGE DIAGNOSES: 1. Cardiogenic shock. 2. Acute exacerbation of congestive heart failure of diastolic variety. 3. Acute kidney injury. 4. Recurrent right-sided pleural effusion. 5. Coronary artery disease. HISTORY OF PRESENT ILLNESS AND BRIEF HOSPITAL COURSE: The patient is a 79-year- old female with past medical history of diastolic heart failure, who was admitted to the hospital for exacerbation of this underlying process. She was admitted to the ICU in a state of cardiogenic shock requiring pressors including dobutamine and norepinephrine. Her workup also revealed large right-sided effusion that was drained. The patient was diuresed aggressively to achieve negative fluid balance. We were able to wean her off the vasopressors. However, during the ensuing days , her cholecystitis and kidney function started to deteriorate. The patient was again placed on IV dobutamine and diuresis was again attempted. At this time, however , the patient was not responding real well and we could not wean the patient off the dobutamine safely. The physicians and palliative care team met with the family and the patient to discuss her poor prognosis and decision was made to pursue hospice care. The patient was subsequently put on hospice, and prior to leaving the hospital. Job ID: [id number] MTDD
== END 2019-08-19 15:07 | disposition expired | DRG 291 ==
LOC: ERS 10:26 → CCU 14:38 → 2NO 08-12 20:44 → CCU 08-15 05:24 → 2NO 08-17 21:21
PROVIDERS: ADMIT Internal Medicine; ATTEND Internal Medicine
PROC: 0W993ZZ Drainage of Right Pleural Cavity, Percutaneous Approach (ICD-10-PCS; principal; 2019-08-08)
PROC: 3E033XZ Introduction of Vasopressor into Peripheral Vein, Percutaneous Approach (ICD-10-PCS; 2019-08-09)
PROC: 5A09357 Assistance with Respiratory Ventilation, Less than 24 Consecutive Hours, Continuous Positive Airway Pressure (ICD-10-PCS; 2019-08-15)
DX: I13.0 Hypertensive heart and chronic kidney disease with heart failure and stage 1 through stage 4 chronic kidney disease, or unspecified chronic kidney disease (principal); J96.01 Acute respiratory failure with hypoxia; J18.9 Pneumonia, unspecified organism; I50.43 Acute on chronic combined systolic (congestive) and diastolic (congestive) heart failure; N17.9 Acute kidney failure, unspecified; J90 Pleural effusion, not elsewhere classified; J93.9 Pneumothorax, unspecified; E27.40 Unspecified adrenocortical insufficiency; E87.3 Alkalosis; N18.4 Chronic kidney disease, stage 4 (severe); Z51.5 Encounter for palliative care; Z66 Do not resuscitate; R57.0 Cardiogenic shock; D63.1 Anemia in chronic kidney disease; I27.20 Pulmonary hypertension, unspecified; E78.5 Hyperlipidemia, unspecified; E87.70 Fluid overload, unspecified; I35.0 Nonrheumatic aortic (valve) stenosis; I34.0 Nonrheumatic mitral (valve) insufficiency; I25.10 Atherosclerotic heart disease of native coronary artery without angina pectoris; I25.5 Ischemic cardiomyopathy; K64.9 Unspecified hemorrhoids; Z90.710 Acquired absence of both cervix and uterus; Z95.1 Presence of aortocoronary bypass graft; Z95.5 Presence of coronary angioplasty implant and graft; Z79.01 Long term (current) use of anticoagulants; Z95.2 Presence of prosthetic heart valve; Z95.0 Presence of cardiac pacemaker; Z88.8 Allergy status to other drugs, medicaments and biological substances
CPT/HCPCS: 36415; 36416; 36556; 51701; 71045; 71046; 71250; 76770; 80048; 80053; 81003; 81015; 82150; 82533; 82550; 82553; 82805; 82945; 83605; 83615; 83630; 83735; 83880; 84100; 84157; 84443; 84478; 84484; 85007; 85025; 85027; 85060; 85610; 85730; 87040; 87045; 87046; 87070; 87086; 87116; 87186; 87205; 87206; 87328; 87329; 87427; 87449; 88112; 88305; 89051; 93005; 93306; 93798; 94640; 96361; 96365; 96367; 96375; J0692; J0696; J1250; J1450; J1644; J1720; J1940; J2060; J2543; J3370; J3490; J7050; J7512; J7620